=== PATIENT | female | born 1995 | race Caucasian/White ===

== ENCOUNTER → 2016-10-31 | Outpatient (CLI) | payer OTHER ==
--- NOTE | 2016-11-01 01:32 | REP ---
Clinical: Pain . Technique: AP, lateral, bilateral oblique views right third digit . Findings: The osseous structures and joint spaces are intact and normal. There is no evidence for acute fracture or dislocation. Surrounding soft tissues are unremarkable. No subcutaneous emphysema or radiodense foreign body. Impression: Normal examination. No acute fracture or dislocation. Signed by Alessio Mueller MD 11/01/2016 01:24 A
== END | disposition home or self-care (01) ==
LOC: M LRY 13:47
PROVIDERS: ATTEND Family Medicine
DX: M79.644 Pain in right finger(s) (principal)

== ENCOUNTER → 2016-12-13 | Outpatient (CLI) | payer OTHER ==
--- NOTE | 2016-12-13 16:36 | REP ---
OB ULTRASOUND: Real-time sonographic evaluation of the gravid uterus is performed. There is a single living intrauterine gestation. The estimated gestational age is 12 weeks 3 days with EDC 06/24/2017. Today's measurements indicate appropriate growth. Logan-rump length 58 mm 12 weeks 2 days, 38th percentile. BPD 20 mm = 13 weeks 0 days, 68th percentile. HC 71 mm = 12 weeks 6 days, 62nd percentile. AC 54 mm = 12 weeks 2 day, at the 44th percentile. Femur length 7 mm = 12 weeks 2 days, 40th percentile. HC/AC ratio 1.31 within normal limits. Cervix is closed and measures 3 cm in length. heart rate 160 beats per minute. There is no subchronic hemorrhage, suggest followup anatomical screening ultrasound examination at 20 weeks gestational age. Signed by Abisai Ann MD 12/13/2016 04:45 P
== END ==
LOC: M LRY 13:06
PROVIDERS: ATTEND Family Medicine
DX: Z36 Encounter for antenatal screening of mother (principal); Z3A.12 12 weeks gestation of pregnancy

== ENCOUNTER → 2016-12-25 | Outpatient (REF) | payer OTHER | LOC: M SFHCLERA 17:05 | PROVIDERS: ATTEND Nurse Practitioner Family | DX: J06.9 Acute upper respiratory infection, unspecified (principal) ==

== ENCOUNTER → 2016-12-27 | Outpatient (CLI) | payer OTHER ==
[2016-12-27 13:50] LABS: ALBUMIN 3.8 GM/DL (3.2-5.2); ALBUMIN/GLOBULIN RATIO 1.06 (1.00-1.93); ALKALINE PHOSPHATASE 46 U/L (45-117); ALT/SGPT 15 U/L (12-78); AST/SGOT 14 U/L (15-37); BILIRUBIN,DIRECT < 0.1 MG/DL (0.0-0.2); BILIRUBIN,TOTAL 0.3 MG/DL (0.2-1.0); TOTAL PROTEIN 7.4 GM/DL (6.4-8.2)
[2016-12-27 14:27] LABS: BASO % 0.3 % (0.0-1.0); EOS # 0.1 K/mm3 (0.0-0.50); EOS % 1.1 % (0.0-3.0); LARGE UNSTAINED CELL # 0.1 K/mm3 (0.0-0.4); LARGE UNSTAINED CELL % 1.5 % (0.0-4.0); LYMPH # 1.5 K/mm3 (1.5-6.5); LYMPH % 20.5 % (24.0-44.0); MEAN CORPUSCULAR HEMOGLOBIN 23.8 pg (27.0-33.0); MEAN CORPUSCULAR VOLUME 79.4 fl (80.0-96.0); MONO # 0.3 K/mm3 (0.0-0.8); MONO % 4.6 % (0.0-5.0); NEUTROPHILS # 5.3 K/mm3 (1.8-7.7); PLATELET COUNT, AUTOMATED 212 k/mm3 (150-450); RED CELL DISTRIBUTION WIDTH 16.2 % (11.5-14.5); WHITE BLOOD COUNT 7.3 K/mm3 (4.0-10.0)
[2016-12-27 14:52] LABS: CONTROL LINE INT CTR LINE PRESENT; HIV SCRN NEGATIVE (NEGATIVE); HIV SCRN1 NEGATIVE (NEGATIVE)
[2016-12-28 09:43] LABS: HBsAg Prenatal NEGATIVE (NEGATIVE)
== END ==
LOC: M SMT 09:02
PROVIDERS: ATTEND Advanced Practice Midwife
DX: Z34.81 Encounter for supervision of other normal pregnancy, first trimester (principal); Z87.59 Personal history of other complications of pregnancy, childbirth and the puerperium; Z36 Encounter for antenatal screening of mother; Z3A.00 Weeks of gestation of pregnancy not specified

== ENCOUNTER → 2017-01-22 | Outpatient (CLI) | payer OTHER ==
--- NOTE | 2017-01-23 03:03 | REP ---
Clinical: Anatomical evaluation. Comparison: 12/13/2016 . Findings: Examination demonstrates a single live intrauterine in cephalic presentation. motion is identified by technologist. Placenta is noted posterior fundally and grade 0 without evidence for placenta previa or abruption. Amniotic fluid volume is normal. Cervix measures 3.7 cm in length and appears closed. No evidence for nuchal cord. Gestational age by LMP 18 weeks 1 day with KEVIN eight 06/24/2017 . Gestational age by current measurements 18 weeks 2 days with KEVIN 06/23/2017 . FHR equals 147 beats per minute. BPD 4.2 cm 18 weeks 4 days HC 16.0 cm 18 weeks 6 days AC 12.5 cm 18 weeks 1 day FL 2.6 cm 18 weeks 0 days HL 2.7 cm 18 weeks 3 days HC/AC ratio 1.28 Estimated weight 227 grams ( left 48th percentile). Anatomical assessment demonstrates normal structures including cranium, choroid plexus, cavum, cerebellum/posterior fossa, facial features, lungs, four-chamber heart/ventricular outflow tracts, diaphragm, stomach, cord insertion/three-vessel cord, kidneys/bladder, spine, and extremities. Impression: Single live intrauterine in cephalic presentation. Anatomical assessment is complete and normal. No gross abnormalities are identified. Signed by Alessio Mueller MD 01/23/2017 02:54 A
== END ==
LOC: M LRY 11:55
PROVIDERS: ATTEND Obstetrics & Gynecology
DX: Z36 Encounter for antenatal screening of mother (principal)

== ENCOUNTER → 2017-03-18 | Outpatient (CLI) | payer OTHER ==
[2017-03-18 21:01] LABS: ALBUMIN 3.2 GM/DL (3.2-5.2); ALBUMIN/GLOBULIN RATIO 0.82 (1.00-1.93); ALKALINE PHOSPHATASE 78 U/L (45-117); ALT/SGPT 17 U/L (12-78); AST/SGOT 15 U/L (15-37); BILIRUBIN,DIRECT < 0.1 MG/DL (0.0-0.2); BILIRUBIN,TOTAL 0.3 MG/DL (0.2-1.0); TOTAL PROTEIN 7.1 GM/DL (6.4-8.2)
== END ==
LOC: M LRY 16:15
PROVIDERS: ATTEND Advanced Practice Midwife
DX: Z34.82 Encounter for supervision of other normal pregnancy, second trimester (principal); L29.9 Pruritus, unspecified; Z36 Encounter for antenatal screening of mother; Z3A.00 Weeks of gestation of pregnancy not specified

== ENCOUNTER → 2017-03-19 | Outpatient (CLI) | payer OTHER ==
[2017-03-19 17:11] LABS: MEAN CORPUSCULAR HEMOGLOBIN 23.5 pg (27.0-33.0); MEAN CORPUSCULAR HGB CONC 29.9 g/dl (32.0-36.5); MEAN CORPUSCULAR VOLUME 78.8 fl (80.0-96.0); RED CELL DISTRIBUTION WIDTH 17.1 % (11.5-14.5)
[2017-03-20 08:21] LABS: WHITE BLOOD COUNT 9.3 K/mm3 (4.0-10.0)
== END ==
LOC: M LRY 10:44
PROVIDERS: ATTEND Advanced Practice Midwife
DX: Z34.82 Encounter for supervision of other normal pregnancy, second trimester (principal); Z36 Encounter for antenatal screening of mother; Z3A.00 Weeks of gestation of pregnancy not specified

== ENCOUNTER 2017-04-04 08:39 | Outpatient (CLI) | payer OTHER ==
[2017-04-04] MEDS ORDERED: IRON SUCROSE 500 MG in NS 250 ML IV ONE (09:30)
== END 2017-04-04 13:45 | disposition home or self-care (01) ==
LOC: M INFU 08:39
PROVIDERS: ATTEND Advanced Practice Midwife
DX: D64.9 Anemia, unspecified (principal); Z33.1 Pregnant state, incidental; Z88.8 Allergy status to other drugs, medicaments and biological substances; Z91.011 Allergy to milk products; Z79.899 Other long term (current) drug therapy

== ENCOUNTER 2017-04-04 14:00 | Emergency (ER) | payer OTHER ==
[~2017-04-04] VITALS: Ht 152.4 cm; Wt 68.2 kg
[2017-04-04 15:25] VITALS: BP 110/56
== END 2017-04-04 15:27 | disposition home or self-care (01) ==
LOC: M ED 14:00
DX: M79.89 Other specified soft tissue disorders (principal); T45.4X5A Adverse effect of iron and its compounds, initial encounter; X58.XXXA Exposure to other specified factors, initial encounter; Y92.238 Other place in hospital as the place of occurrence of the external cause; O99.513 Diseases of the respiratory system complicating pregnancy, third trimester; J45.909 Unspecified asthma, uncomplicated; O99.343 Other mental disorders complicating pregnancy, third trimester; F41.9 Anxiety disorder, unspecified; Z88.1 Allergy status to other antibiotic agents; Z3A.28 28 weeks gestation of pregnancy

== ENCOUNTER → 2017-04-19 | Outpatient (CLI) | payer OTHER ==
[~2017-04-19] MED LIST: ALBU17IN INH; IRON65TA PO; MACR100C43 PO; PRENTAB9 PO; URSO1TAB6 PO
--- NOTE | 2017-04-19 17:52 | REP ---
OB ULTRASOUND: REASON: Followup. COMPARISON: 01/22/2017. Multiple ultrasonographic images of the gravid uterus show a single living intrauterine gestation in the elvin breech presentation. Doppler interrogation of the heart shows a heart rate of 133 beats per minute. The placenta is posterior and not low lying. The subjective aminotic fluid volume is within normal limits. The cervix measures 2.5 cm in length and it is closed. Evaluation of the maternal adnexal spaces showed no abnormalities. The umbilical cord was seen draped over the neck. BPD 7.3 cm = 29 weeks 2 days HC 27.9 cm = 30 weeks 4 days AC 25.0 cm = 29 weeks 1 day FL 5.7 cm = 29 weeks 5 days Estimated weight is 1402 grams which is at the 19th percentile for a 30 week 4 day gestational age. The calculated amniotic fluid index is 13.9 with an expected range of 8.9-23.6. Doppler interrogation of the umbilical artery shows an AD ratio of 0.62 which is within the normal range. A full anatomic screen was performed on the prior exam. IMPRESSION: Single living intrauterine gestation as described above with an estimated gestational age of 29 weeks 3 days via composite criteria. The delivery date was not calculated for this exam. The reason for which is unknown to me. Signed by Jerel Poon DO 04/29/2017 01:22 P
== END ==
LOC: M LRY 14:37
PROVIDERS: ATTEND Advanced Practice Midwife
DX: O26.613 Liver and biliary tract disorders in pregnancy, third trimester (principal); Z36 Encounter for antenatal screening of mother; Z3A.29 29 weeks gestation of pregnancy; O32.1XX0 Maternal care for breech presentation, not applicable or unspecified

== ENCOUNTER → 2017-04-22 | Outpatient (CLI) | payer OTHER ==
[2017-04-22 18:08] LABS: ALBUMIN 2.9 GM/DL (3.2-5.2); ALBUMIN/GLOBULIN RATIO 0.88 (1.00-1.93); ALKALINE PHOSPHATASE 77 U/L (45-117); ALT/SGPT 12 U/L (12-78); AST/SGOT 12 U/L (15-37); BILIRUBIN,DIRECT < 0.1 MG/DL (0.0-0.2); BILIRUBIN,TOTAL 0.3 MG/DL (0.2-1.0); TOTAL PROTEIN 6.2 GM/DL (6.4-8.2)
[2017-04-22 20:24] LABS: BASO % 0.2 % (0.0-1.0); EOS # 0.1 K/mm3 (0.0-0.50); EOS % 1.2 % (0.0-3.0); LARGE UNSTAINED CELL % 0.6 % (0.0-4.0); LYMPH # 1.2 K/mm3 (1.5-6.5); LYMPH % 17.7 % (24.0-44.0); MEAN CORPUSCULAR HEMOGLOBIN 25.8 pg (27.0-33.0); MEAN CORPUSCULAR HGB CONC 30.2 g/dl (32.0-36.5); MEAN CORPUSCULAR VOLUME 85.4 fl (80.0-96.0); MONO # 0.2 K/mm3 (0.0-0.8); MONO % 3.3 % (0.0-5.0); NEUTROPHILS # 4.9 K/mm3 (1.8-7.7); NEUTROPHILS % 77.1 % (36.0-66.0); PLATELET COUNT, AUTOMATED 195 k/mm3 (150-450); RED CELL DISTRIBUTION WIDTH 22.3 % (11.5-14.5); WHITE BLOOD COUNT 6.4 K/mm3 (4.0-10.0)
[2017-04-22 20:27] LABS: ADD MORPHOLOGY? YES
[2017-04-22 22:28] LABS: ANISOCYTOSIS 3+; HYPOCHROMASIA 1+; POLYCHROMASIA 1+
== END ==
LOC: M LRY 10:20
PROVIDERS: ATTEND Advanced Practice Midwife
DX: O26.613 Liver and biliary tract disorders in pregnancy, third trimester (principal); Z36 Encounter for antenatal screening of mother; Z3A.00 Weeks of gestation of pregnancy not specified

== ENCOUNTER → 2017-05-07 | Outpatient (CLI) | payer OTHER ==
--- NOTE | 2017-05-07 16:32 | REP ---
HISTORY: Inconclusive NFT. Obtain biophysical profile. Multiple ultrasonographic images of the gravid uterus show a single living intrauterine gestation in the cephalic presentation. Doppler interrogation of the heart shows a heart rate of 136 beats per minute. Doppler interrogation of the umbilical artery shows an AB ratio of 2.73. This is within the normal range. The subjective amniotic fluid volume is within normal limits. The calculated amniotic fluid index is 12.7 with an expected range 8.3 to 24.5. The cervix measures 3.2 cm in length and is closed. biophysical profile score is 2 for breathing, 2 for movement, 2 for tone and 2 for amniotic fluid volume giving a sum total of 8 out of 8. IMPRESSION: Limited OB ultrasound as described above. Signed by Jerel Poon DO 05/07/2017 04:36 P
== END ==
LOC: M RAD 15:27
PROVIDERS: ATTEND Advanced Practice Midwife
DX: O26.613 Liver and biliary tract disorders in pregnancy, third trimester (principal)

== ENCOUNTER → 2017-05-09 | Outpatient (CLI) | payer OTHER ==
[2017-05-09 21:00] LABS: ALBUMIN/GLOBULIN RATIO 0.91 (1.00-1.93); ALKALINE PHOSPHATASE 95 U/L (45-117); ALT/SGPT 14 U/L (12-78); AST/SGOT 12 U/L (15-37); BILIRUBIN,DIRECT < 0.1 MG/DL (0.0-0.2); BILIRUBIN,TOTAL 0.3 MG/DL (0.2-1.0); TOTAL PROTEIN 6.3 GM/DL (6.4-8.2)
--- NOTE | 2017-05-10 08:12 | REP ---
Clinical: Growth evaluation. Comparison: 04/19/2017 . Findings: Examination demonstrates a single live intrauterine in cephalic presentation. motion is identified by technologist. Placenta is noted posteriorly and grade II without evidence for placenta previa or abruption. Amniotic fluid volume is normal. Nuchal cord cannot be excluded. Gestational age by LMP 33 weeks 3 days with KEVIN 06/24/2017 . Gestational age by current measurements 32 weeks 4 days with KEVIN 07/02/2017 . FHR equals 131 beats per minute. BPD 8.2 33 weeks 1 day HC 30.3 33 weeks 4 days AC 28.1 32 weeks 1 day FL 6.3 32 weeks 5 days HL 5.9 33-week 6 days HC/AC ratio 1.08 Estimated weight 1998 grams ( 29th percentile). Amniotic fluid index equals 12.9 cm (8.2 - 24.6). Umbilical cord SD ratio equals 2.35 (2.00 - 3.00) Anatomical assessment demonstrates no gross abnormality. Impression: 1. Single live intrauterine in cephalic presentation demonstrating appropriate interval growth. 2. Nuchal cord cannot be excluded. Signed by Alessio Mueller MD 05/10/2017 05:02 A
== END ==
LOC: M LRY 15:27
PROVIDERS: ATTEND Advanced Practice Midwife
DX: O26.613 Liver and biliary tract disorders in pregnancy, third trimester (principal)

== ENCOUNTER 2017-05-15 19:21 | Outpatient (CLI) | payer OTHER ==
[~2017-05-15] VITALS: Ht 152.4 cm; Wt 66.0 kg
[2017-05-15 19:36] VITALS: BP 108/63
[2017-05-15] MEDS ORDERED: PRENTAB9 PO (19:55)
[2017-05-15] MEDS ORDERED: IRON65TA PO (19:55)
[2017-05-15] MEDS ORDERED: URSO1TAB6 PO (19:55)
[2017-05-15] MEDS ORDERED: MACR100C43 PO (20:20)
[2017-05-15] MEDS ORDERED: NITROFURANTOIN (MACROBID) 100 MG CAP PO ONE (20:30)
--- NOTE | 2017-05-15 21:46 | HPE ---
DATE OF ADMISSION: 05/15/2017 CHIEF COMPLAINT: Cramping. History of present illness: Patient is a 21-year-old -0-1-3 at 34 weeks 2 days gestation with an estimated due date of 06/24/2017 from last menstrual period of 09/17/2016. She presents complaining of cramping since yesterday, started around 12:45. Today, she is experiencing waves of contractions, they last about 45 seconds and are every 6-8 minutes since 15:45 today. Now, she states that the contractions have lessened and are starting to stop. Patient states that she has been drinking all day, she denies urinary symptoms, leakage of fluid, bleeding and discharge. Patient says her last intercourse was on Saturday. Patient admits nausea and a headache that she rates 5 out of 10, that starts as an ache and will periodically progress to throbbing and then go back to being just an ache. PAST MEDICAL HISTORY: 1. Pregnancies complicated by cholestasis of . 2. Anemia. 3. Asthma without status asthmatics. 4. Febrile seizures. MEDICATIONS: - iron 325 mg twice a day - Ursodiol 500 mg three times a day - vitamins EXAM: Temperature 98, pulse 96, respiratory rate 18, blood pressure 108/63. ABDOMEN: Gravid. SVE: Closed, thick and high. FHR: Category 1 tracing. LABS: Urine dip showed leukocytes +1, trace proteins, ketones +1. ASSESSMENT AND PLAN: Intrauterine at 34 weeks 2 days gestation with probable urinary tract infection. Urinalysis with culture and sensitivity is ordered. Patient has been placed on Macrobid 100 mg twice a day for 7 days. My preceptor for this patient encounter was Dr. Dilma Crouch. The preceptor was physically present in the building during the encounter and was fully available as needed. All aspects of the patient interview, examination, medical decision making process, and medical care plan development were reviewed and approved by the preceptor. The preceptor is aware and concurs with the plan as stated in the body of this note and will attest to such by his/her co-signature. JOSE
== END 2017-05-15 20:20 | disposition home or self-care (01) ==
LOC: M LDO 19:21
PROVIDERS: ATTEND Obstetrics & Gynecology
DX: O99.89 Other specified diseases and conditions complicating pregnancy, childbirth and the puerperium (principal); Z3A.34 34 weeks gestation of pregnancy; R10.9 Unspecified abdominal pain; O99.013 Anemia complicating pregnancy, third trimester; O99.513 Diseases of the respiratory system complicating pregnancy, third trimester; R56.00 Simple febrile convulsions; O26.613 Liver and biliary tract disorders in pregnancy, third trimester; Z88.1 Allergy status to other antibiotic agents; Z91.040 Latex allergy status

== ENCOUNTER 2017-05-25 03:20 | Outpatient (CLI) | payer OTHER ==
[~2017-05-25] VITALS: Ht 152.4 cm; Wt 65.0 kg
[~2017-05-25 03:20] MED LIST changes: -ALBU17IN INH
[2017-05-25 03:23] VITALS: BP 124/60
[2017-05-25 04:04] LABS: MEAN CORPUSCULAR HEMOGLOBIN 25.9 pg (27.0-33.0); MEAN CORPUSCULAR HGB CONC 31.8 g/dl (32.0-36.5); MEAN CORPUSCULAR VOLUME 81.4 fl (80.0-96.0); RED CELL DISTRIBUTION WIDTH 18.2 % (11.5-14.5); WHITE BLOOD COUNT 8.8 K/mm3 (4.0-10.0)
[2017-05-25] MEDS ORDERED: ONDANSETRON 4MG/2ML VIAL (J2405) IV PRN (04:15)
[2017-05-25] MEDS ORDERED: LR 1,000 ML IV SCH (04:30)
[2017-05-25] MEDS ORDERED: LR 1,000 ML IV ONE (04:30)
[2017-05-25 04:46] LABS: ALBUMIN 2.9 GM/DL (3.2-5.2); ALBUMIN/GLOBULIN RATIO 0.88 (1.00-1.93); ALKALINE PHOSPHATASE 121 U/L (45-117); ALT/SGPT 12 U/L (12-78); ANION GAP 10 MEQ/L (8-16); AST/SGOT 11 U/L (15-37); BILIRUBIN,TOTAL 0.3 MG/DL (0.2-1.0); BLOOD UREA NITROGEN 10 MG/DL (7-18); CALCIUM LEVEL 7.8 MG/DL (8.5-10.1); CARBON DIOXIDE LEVEL 20 MEQ/L (21-32); CHLORIDE LEVEL 111 MEQ/L (98-107); CREATININE FOR GFR 0.53 MG/DL (0.55-1.02); GLOMERULAR FILTRATION RATE > 60.0 (>60); GLUCOSE, FASTING 85 MG/DL (70-105); POTASSIUM SERUM 3.9 MEQ/L (3.5-5.1); SODIUM LEVEL 141 MEQ/L (136-145); TOTAL PROTEIN 6.2 GM/DL (6.4-8.2)
[2017-05-25 05:23] VITALS: BP 105/65
[2017-05-25] MEDS ORDERED: PROMETHAZINE INJ 25 MG/ML VIAL (J2550) IV ONE (05:45)
[2017-05-25] MEDS ORDERED: KETOROLAC 30 MG/ML VIAL (J1885) IV ONE (05:45)
== END 2017-05-25 13:07 | disposition home or self-care (01) ==
LOC: M LDO 03:20
PROVIDERS: ATTEND Specialist
DX: O99.89 Other specified diseases and conditions complicating pregnancy, childbirth and the puerperium (principal); B34.9 Viral infection, unspecified; Z3A.35 35 weeks gestation of pregnancy
CPT/HCPCS: 80053; 83690; 85027; 96374; 96375; J1885; J2405

== ENCOUNTER 2017-05-26 11:36 | Inpatient (IN) | payer OTHER ==
[2017-05-26] VITALS (7 sets, daily range): BP systolic 108–122; BP diastolic 56–72
[~2017-05-26] VITALS: Ht 152.4 cm; Wt 66.0 kg
[2017-05-26 20:12] LABS: MEAN CORPUSCULAR HEMOGLOBIN 26.6 pg (27.0-33.0); MEAN CORPUSCULAR HGB CONC 32.5 g/dl (32.0-36.5); MEAN CORPUSCULAR VOLUME 81.9 fl (80.0-96.0); WHITE BLOOD COUNT 11.7 K/mm3 (4.0-10.0)
[2017-05-26] MEDS: URSODIOL 300 MG CAP PO SCH (20:30)
[2017-05-26] MEDS: BETAMETHASONE SOLUSPAN 6MG/ML INJ 5ML (J0702) IM SCH (20:31)
[2017-05-26] MEDS ORDERED: PENICILLIN G POTASSIUM IV 5 MU in D5W MINI-BAG PLUS 100 ML IV STA (21:35)
[2017-05-27] MEDS: PENICILLIN G POTASSIUM IV 2.5 MU in D5W 100 ML IV SCH ×3 (02:06→10:01)
[2017-05-27 02:10] VITALS: BP 109/66
[2017-05-27 05:09] VITALS: BP 104/56
[2017-05-27] MEDS: BETAMETHASONE SOLUSPAN 6MG/ML INJ 5ML (J0702) IM SCH (08:45)
[2017-05-27] MEDS: URSODIOL 300 MG CAP PO SCH (08:45)
[2017-05-27 08:50] VITALS: BP 104/60
[2017-05-27 10:05] VITALS: BP 115/72
--- NOTE | 2017-05-27 13:21 | HPE ---
DATE OF ADMISSION: 05/26/2017 HISTORY: A 21-year-old G5, P-3-0-1-3 female at 35-6/7 weeks gestation by last menstrual period (LMP) consistent with 12 week ultrasound, estimated date of confinement (EDC) of 06/24/2017, presents with abdominal pain and contractions for several hours. She had been observed the evening before for nausea and vomiting and those symptoms have resolved. No bloody show. There is good movement. COURSE: Patient appreciated care on 12/27/2016 at 14 weeks gestation. Her blood pressure at that time was 120/66, weighed 136 pounds. She was diagnosed with cholestasis of at 30 weeks gestation based on a bile acid level of 13.3 and started on ursodiol. She had significant anemia with hemoglobin of 8.3 at 26 weeks and was started on oral iron therapy for this. OBSTETRICAL HISTORY: 1. November 2012: 40 week vaginal delivery of 6 pound 15 ounce female . 2. Miscarriage. 3. October 2014: 40 week vaginal delivery of 8 pound 9 ounce male infant. 4. September 2016: 40 week vaginal delivery of 6 pound 14 ounce male infant. complicated by cholestasis. was hospitalized with group B Streptococcus (GBS) sepsis. MEDICAL HISTORY: Anxiety. SURGERIES: Eye surgery. ALLERGIES: 1. ROCEPHIN 2. LACTOSE SOCIAL HISTORY: Patient is . Patient denies cigarettes, alcohol or drug use. FAMILY HISTORY: Noncontributory. PHYSICAL EXAMINATION: Blood pressure 124/84, pulse 84. She appears mildly uncomfortable. HEAD AND NECK EXAMINATION: Normal. LUNGS: Clear. HEART: Regular rate and rhythm. ABDOMEN: Nontender. Gravid. heart tones category 1. Contractions at a rate of 2 out of 7 minutes. CERVIX: 3-4 cm, 80% effaced. -2 station. Moderate consistency, mid position. Vertex. EXTREMITIES: Nontender. LABORATORY DATA: Blood type A positive, Rubella immune, RPR nonreactive, hepatitis B and C negative, HIV negative. Diabetes screen of 99. ASSESSMENT: A 21-year-old G5, P3 female at 35-6/7 weeks gestation, cholestasis of presents with contractions, possible labor. Patient is going to be admitted on 05/26/2017. Will plan betamethasone times two dosed for lung maturity. If patient makes further cervical change, would start antibiotics for group B Streptococcus (GBS) prophylaxis given the history of prior GBS infection in her last . Do not plan to augment labor at this time.
== END 2017-05-27 11:25 | disposition home or self-care (01) | DRG 563 ==
LOC: M LDO 11:36 → M LDI 19:40
PROVIDERS: ADMIT Specialist; ATTEND Specialist
DX: O60.03 Preterm labor without delivery, third trimester (principal); Z3A.35 35 weeks gestation of pregnancy; O26.613 Liver and biliary tract disorders in pregnancy, third trimester; K83.1 Obstruction of bile duct; O99.013 Anemia complicating pregnancy, third trimester; D64.9 Anemia, unspecified

== ENCOUNTER → 2017-05-28 | Outpatient (REF) | payer OTHER ==
[~2017-05-28] MED LIST changes: +ALBU17IN INH
== END ==
LOC: M LAB REF 17:08
PROVIDERS: ATTEND Obstetrics & Gynecology
DX: Z34.83 Encounter for supervision of other normal pregnancy, third trimester (principal); Z36 Encounter for antenatal screening of mother; Z3A.00 Weeks of gestation of pregnancy not specified

== ENCOUNTER 2017-06-03 09:14 | Inpatient (IN) | payer OTHER ==
[2017-06-03] VITALS (18 sets, daily range): BP systolic 99–122; BP diastolic 55–78
[~2017-06-03] VITALS: Ht 152.4 cm; Wt 72.0 kg
[~2017-06-03 09:14] MED LIST changes: -ALBU17IN INH
[2017-06-03] MEDS ORDERED: LR 1,000 ML IV SCH (10:00)
[2017-06-03] MEDS ORDERED: OXYTOCIN DRIP 30 UNITS in APPROPRIATE DILUENT 1 EA IV SCH (10:00)
[2017-06-03] MEDS ORDERED: ALBU17IN INH (10:02)
[2017-06-03] MEDS ORDERED: PENICILLIN G POTASSIUM IV 5 MU in D5W MINI-BAG PLUS 100 ML IV STA (10:07)
[2017-06-03 11:00] LABS: MEAN CORPUSCULAR HEMOGLOBIN 25.6 pg (27.0-33.0); MEAN CORPUSCULAR HGB CONC 31.2 g/dl (32.0-36.5); MEAN CORPUSCULAR VOLUME 82.2 fl (80.0-96.0); RED CELL DISTRIBUTION WIDTH 17.8 % (11.5-14.5); WHITE BLOOD COUNT 8.1 K/mm3 (4.0-10.0)
--- NOTE | 2017-06-03 12:43 | HPE ---
DATE OF ADMISSION: 06/03/2017 21-year-old, (G) 5, para (P) 3-0-1-3 female at 37 and 0/7 weeks gestation by last menstrual period (LMP) consistent with 12 week ultrasound and expected date of confinement (EDC) of 06/24/2017 who presents for labor induction. The indication for induction is cholestasis of . She has had contractions and denies vaginal bleeding. COURSE: The patient initiated care at 14 weeks gestation on 12/27/2016. Her blood pressure was 120/66 and weight 136 pounds. At 30 weeks gestation, the patient was diagnosed with cholestasis of based on a bile acid of 13.3. She had itching that was intense and she was started on Ursodiol three times a day for treatment. She had anemia during the and was treated with oral iron. She was admitted at 35 weeks with a viral syndrome with nausea, vomiting and diarrhea. She was admitted the following day for contractions. Subsequently, her labor stopped at 4 cm. She did receive steroids at that time. The date of steroids is 05/27/2017. OBSTETRICAL HISTORY: 1. In 2012, 40 week vaginal delivery, 6 pound 15 ounce female . 2. In October 2014, 40 week vaginal delivery, 8 pound 8 ounce male infant. 3. In June 2016, 40 week vaginal delivery, 6 pound 14 ounce male infant. The was complicated by cholestasis as well as oligohydramnios. The infant was hospitalized with Group B Strep sepsis. MEDICAL HISTORY: 1. Anxiety. No current medications. 2. Asthma. 3. Arthritis. 4. Hiatal hernia. 5. Anemia. SURGICAL HISTORY: Eye surgery. SOCIAL HISTORY: The patient denies cigarettes, alcohol or drug use. FAMILY HISTORY: Noncontributory. PHYSICAL EXAMINATION: Blood pressure 120/74. Pulse 84. She is in no apparent distress. Head and Neck Exam: Normal. Lungs: Clear. Heart: Regular rate and rhythm. Abdomen: Nontender. Gravid. heart tones Category 1. Sterile Vaginal Exam: 4 cm, 70% effaced, -2 station, vertex, posterior, soft. Extremities: Nontender. LABS: Blood type A positive. Rubella immune. RPR nonreactive. Hepatitis B and C negative. HIV negative. Diabetes screen 99. ASSESSMENT: 21-year-old, 5, para 3-0-1-3 female, at 37 and 0/7 weeks gestation with cholestasis of . The patient is admitted for labor induction due to cholestasis. PLAN: The patient is admitted on 06/03/2017. She will receive penicillin GBS prophylaxis due to history of prior Group B Strep sepsis in her prior . The risks of induction were discussed.
[2017-06-03] MEDS ORDERED: PENICILLIN G POTASSIUM IV 2.5 MU in D5W 100 ML IV SCH (15:00)
[2017-06-03] MEDS ORDERED: OXYTOCIN DRIP 30 UNITS in APPROPRIATE DILUENT 1 EA IV ONE (17:45)
[2017-06-03] MEDS ORDERED: DOCUSATE SODIUM 100 MG CAP PO PRN (17:45)
[2017-06-03] MEDS ORDERED: ONDANSETRON 4MG/2ML VIAL (J2405) IV PRN (17:45)
[2017-06-03] MEDS ORDERED: DIBUCAINE 1% OINTMENT 30GM TOP PRN (17:45)
[2017-06-03] MEDS ORDERED: MEASLES,MUMPS,RUBELLA VACCINE INJ (MMR-II) (90707) SC SCH (17:45)
[2017-06-03] MEDS ORDERED: METHYLERGONOVINE MALEATE 0.2 MG TAB PO PRN (17:45)
[2017-06-03] MEDS ORDERED: RHOGAM 300 MCG (1500 IU) INJ (J2790) IM SCH (17:45)
--- NOTE | 2017-06-03 17:45 | DN ---
DATE: 06/03/2017 PREDELIVERY DIAGNOSIS: 37 week cholestasis of . POSTDELIVERY DIAGNOSIS: Delivered. PROCEDURE: Spontaneous vaginal delivery. BEVERAGE MANAGER: Dr. Xander Castaneda ANESTHESIA: None. ESTIMATED BLOOD LOSS: 300 mL. FINDINGS: A 6 pound, 4 ounce male infant, scores of 9 and 9. DELIVERY SUMMARY: After a short second stage consisting only of one or two pushes, the patient had spontaneous delivery of a 6 pound, 4 ounce male , scores 9 and 9 with no delivery anesthesia. Loose nuchal cord times one was reduced. The shoulders delivered with ease. The cried spontaneously and was handed to the mother. The cord was doubly clamped and cut. The placenta delivered spontaneously and appeared to be intact. The patient received IV pitocin immediately after delivery of the placenta. There were no vaginal lacerations present. Sponge counts were correct.
[2017-06-03] MEDS: ACETAMINOPHEN 500 MG TAB PO PRN (18:02)
[2017-06-04] MEDS: IBUPROFEN 800 MG TAB PO PRN ×3 (03:19→18:40)
[2017-06-04] MEDS: PRENATAL VITAMINS CHEWABLE TABLET PO SCH (08:33)
[2017-06-04] MEDS: ACETAMINOPHEN 500 MG TAB PO PRN ×2 (08:34→14:34)
[2017-06-04] MEDS ORDERED: PERCOCET 5MG/325MG TAB PO PRN (18:00)
[2017-06-04 18:07] VITALS: BP 117/64
[2017-06-04 20:00] VITALS: BP 117/64
[2017-06-05] MEDS: IBUPROFEN 800 MG TAB PO PRN (06:00)
[2017-06-05 06:27] VITALS: BP 108/64
[2017-06-05] MEDS: PRENATAL VITAMINS CHEWABLE TABLET PO SCH (08:50)
[2017-06-05] MEDS ORDERED: IBUPROFEN 800 MG TAB PO PRN (17:45)
== END 2017-06-05 16:42 | disposition home or self-care (01) | DRG 560 ==
LOC: M LDI 09:14 → M OBS 20:30
PROVIDERS: ADMIT Specialist; ATTEND Specialist
PROC: 10E0XZZ Delivery of Products of Conception, External Approach (ICD-10-PCS; principal; 2017-06-03)
PROC: 3E033VJ Introduction of Other Hormone into Peripheral Vein, Percutaneous Approach (ICD-10-PCS; 2017-06-03)
DX: O26.62 Liver and biliary tract disorders in childbirth (principal); K83.1 Obstruction of bile duct; O99.02 Anemia complicating childbirth; D64.9 Anemia, unspecified; Z3A.37 37 weeks gestation of pregnancy; O69.81X0 Labor and delivery complicated by cord around neck, without compression, not applicable or unspecified; Z37.0 Single live birth

== ENCOUNTER 2017-07-04 12:37 | Day surgery (SDC) | payer OTHER ==
[~2017-07-04] VITALS: Ht 152.4 cm; Wt 66.7 kg
[~2017-07-04 12:37] MED LIST changes: +ALBU17IN INH
[2017-07-04] MEDS ORDERED: LR 1,000 ML IV ONE (12:45)
[2017-07-04] MEDS ORDERED: dexameTHASONE 4 MG/ML 1ML VIAL (J1100) IV ONE (12:45)
[2017-07-04 14:11] LABS: CONTROL LINE UCG INT CTR LINE PRESENT
[2017-07-04] MEDS ORDERED: MIDAZOLAM INJ 2 MG/2 ML VIAL (J2250) As Ordered ONE (14:41)
[2017-07-04] MEDS ORDERED: fentaNYL 100 MCG/2 ML INJECTION (J3010) As Ordered ONE (14:41)
[2017-07-04] MEDS ORDERED: dexameTHASONE 4 MG/ML 1ML VIAL (J1100) As Ordered ONE (15:19)
[2017-07-04] MEDS ORDERED: PROPOFOL 200 MG/20 ML VIAL As Ordered ONE (15:19)
[2017-07-04] MEDS ORDERED: LIDOCAINE 2% INJ 100 MG/5 ML SDV (FOR ANES.) As Ordered ONE (15:19)
[2017-07-04] MEDS ORDERED: ONDANSETRON 4MG/2ML VIAL (J2405) As Ordered ONE (15:19)
[2017-07-04] MEDS ORDERED: PERCOCET 5MG/325MG TAB As Ordered ONE (15:50)
[2017-07-04] MEDS ORDERED: fentaNYL 100 MCG/2 ML INJECTION (J3010) IV PRN (16:15)
[2017-07-04] MEDS ORDERED: HYDROmorphone HCL 1 MG/ML SYRINGE (J1170) IV PRN (16:15)
[2017-07-04] MEDS ORDERED: PERCOCET 5MG/325MG TAB PO PRN (16:15)
[2017-07-04 17:20] VITALS: BP 122/84
--- NOTE | 2017-07-31 10:18 | RO ---
DATE OF PROCEDURE: 07/04/2017 PREPROCEDURE DIAGNOSIS: Chronic tonsillitis. POSTPROCEDURE DIAGNOSIS: Chronic tonsillitis. PROCEDURE PERFORMED: Tonsillectomy. SURGEON: Sylvester Smith MD LOAN PROCESSING SUPERVISOR: ANESTHESIA: General. CLINICAL PREAMBLE: This 22-year-old woman presented to the office with a history of chronic tonsillitis. Physical examination revealed cryptic tonsils. Management options, including tonsillectomy have been discussed. The patient understood and consented to the procedure. DESCRIPTION OF PROCEDURE: Patient was identified in preoperative holding and brought to the operating room in stable condition. In supine position on the operating table, patient received general anesthesia followed by orotracheal intubation without incident. Patient was prepped and draped in the usual fashion for the procedure. The Paul-Cristi mouth gag was inserted and suspended. The right tonsil was medialized using curved Allis forceps. Mucosal incision was made over the superior pole of the right tonsil using the Coblator wand set at 7 for Coblation. The tonsillar capsule was identified, and dissection was carried out along this plane to excise the right tonsil. The left tonsil was then similarly dissected out. At the end of the procedure, both tonsil beds were free of bleeding. Estimated blood loss was less than 10 mL. No complication was encountered. Sponge and instruments counts were correct at the end of the procedure. General anesthesia was reversed, and patient was extubated and brought to the recovery room in stable condition.
== END 2017-07-04 17:35 | disposition home or self-care (01) ==
LOC: M SDC 12:37
PROVIDERS: ATTEND Otolaryngology
DX: J35.01 Chronic tonsillitis (principal); K44.9 Diaphragmatic hernia without obstruction or gangrene; D64.9 Anemia, unspecified; M12.9 Arthropathy, unspecified; F41.9 Anxiety disorder, unspecified; G43.909 Migraine, unspecified, not intractable, without status migrainosus; J45.909 Unspecified asthma, uncomplicated; E73.9 Lactose intolerance, unspecified; Z88.1 Allergy status to other antibiotic agents; Z91.018 Allergy to other foods; Z91.040 Latex allergy status; Z86.69 Personal history of other diseases of the nervous system and sense organs

== ENCOUNTER → 2017-07-22 | Outpatient (REF) | payer OTHER | LOC: M SFHCLERA 10:46 | PROVIDERS: ATTEND Family Medicine | DX: A08.4 Viral intestinal infection, unspecified (principal) ==

== ENCOUNTER 2017-10-02 17:36 | Emergency (ER) | payer OTHER ==
[2017-10-02] MEDS: ONDANSETRON 4MG/2ML VIAL (J2405) IV (18:39)
[2017-10-02] MEDS: KETOROLAC 30 MG/ML VIAL (J1885) IV (18:40)
[2017-10-02] MEDS: NS 1,000 ML IV (18:40)
[2017-10-02] MEDS: PANTOPRAZOLE 40MG TAB (PROTONIX) PO (18:40)
[2017-10-02 18:51] LABS: BASO % 0.5 % (0.0-1.0); EOS # 0.1 10^3/uL (0.0-0.50); EOS % 1.6 % (0.0-3.0); IMMATURE GRANULOCYTE % 0.2 % (0-0); LYMPH # 1.9 10^3/uL (1.5-6.5); LYMPH % 32.7 % (24.0-44.0); MEAN CORPUSCULAR HEMOGLOBIN 24.9 pg (27.0-33.0); MEAN CORPUSCULAR HGB CONC 31.1 g/dl (32.0-36.5); MEAN CORPUSCULAR VOLUME 80.1 fl (80.0-96.0); MONO # 0.3 10^3/uL (0.0-0.8); MONO % 4.9 % (0.0-5.0); NEUTROPHILS # 3.4 10^3/uL (1.8-7.7); NEUTROPHILS % 60.1 % (36.0-66.0); PLATELET COUNT, AUTOMATED 215 10^3/uL (150-450); RED CELL DISTRIBUTION WIDTH 15.3 % (11.5-14.5); WHITE BLOOD COUNT 5.7 10^3/uL (4.0-10.0)
[2017-10-02 19:17] LABS: ALBUMIN 4.1 GM/DL (3.2-5.2); ALBUMIN/GLOBULIN RATIO 1.11 (1.00-1.93); ALKALINE PHOSPHATASE 63 U/L (45-117); ALT/SGPT 15 U/L (12-78); AMYLASE 36 U/L (25-115); ANION GAP 6 MEQ/L (8-16); AST/SGOT 14 U/L (7-37); BILIRUBIN,DIRECT < 0.1 MG/DL (0.0-0.2); BILIRUBIN,TOTAL 0.3 MG/DL (0.2-1.0); BLOOD UREA NITROGEN 12 MG/DL (7-18); CALCIUM LEVEL 8.9 MG/DL (8.5-10.1); CARBON DIOXIDE LEVEL 28 MEQ/L (21-32); CHLORIDE LEVEL 104 MEQ/L (98-107); CREATININE FOR GFR 0.62 MG/DL (0.55-1.02); GLOMERULAR FILTRATION RATE > 60.0 (>60); GLUCOSE, FASTING 75 MG/DL (70-105); POTASSIUM SERUM 3.8 MEQ/L (3.5-5.1); SODIUM LEVEL 138 MEQ/L (136-145); TOTAL PROTEIN 7.8 GM/DL (6.4-8.2)
[2017-10-02] MEDS: MAGNESIUM CITRATE 300 ML BTL PO (19:45)
== END 2017-10-02 20:06 | disposition home or self-care (01) ==
LOC: M ED 17:36
DX: K59.00 Constipation, unspecified (principal); J45.909 Unspecified asthma, uncomplicated; E73.9 Lactose intolerance, unspecified; Z91.040 Latex allergy status; Z88.1 Allergy status to other antibiotic agents; Z91.018 Allergy to other foods; Z82.49 Family history of ischemic heart disease and other diseases of the circulatory system
CPT/HCPCS: J2405

== ENCOUNTER → 2017-10-02 | Outpatient (CLI) | payer OTHER ==
--- NOTE | 2017-10-02 16:07 | REP ---
Clinical: Right upper quadrant and epigastric pain. Technique: Two supine views of the abdomen and pelvis. Findings: Moderate to marked fecal stasis and presumed constipation noted. No evidence for bowel obstruction or perforation. No organomegaly. No abnormal calcifications. Skeletal structures are intact. Impression: Moderate to marked fecal stasis and possible constipation with fecal impaction. Signed by Alessio Mueller MD 10/02/2017 03:59 P
== END ==
LOC: M LRY 15:41
PROVIDERS: ATTEND Nurse Practitioner Family
DX: R10.9 Unspecified abdominal pain (principal)

== ENCOUNTER → 2017-10-02 | Outpatient (CLI) | payer OTHER ==
--- NOTE | 2017-10-02 17:03 | REP ---
However quadrant sonography: History: History of colon stasis. Swelling right upper quadrant. Right upper quadrant pain. Comparison study: December 10, 2015. Findings: Scanning through right upper quadrant of the abdomen demonstrates a normal sized thin-walled gallbladder without evidence of stone or polyp. Common bile duct is normal measuring 0.5 cm in greatest diameter. No focal liver lesion is seen. Left lobe visualization however is somewhat limited due to bowel gas. There is no evidence of ascites. Cortical thinning is seen in the right kidney. The right renal dimensions are 9.9 x 4.8 x 4.5 cm. Impression: Some thinning of the cortex of the right kidney seen. No other abnormality noted.. Signed by Fredi Burger MD 10/02/2017 04:54 P
== END ==
LOC: M LRY 15:55
PROVIDERS: ATTEND Nurse Practitioner Family
DX: R10.9 Unspecified abdominal pain (principal); R93.49 Abnormal radiologic findings on diagnostic imaging of other urinary organs

== ENCOUNTER → 2017-11-21 | Outpatient (CLI) | payer OTHER | LOC: M LRY 17:07 | DX: M79.604 Pain in right leg (principal) | CPT/HCPCS: 73590 ==

== ENCOUNTER → 2017-11-28 | Outpatient (REF) | payer OTHER ==
[2017-11-28 20:36] LABS: HEMATOCRIT 34.7 % (36.0-47.0); HEMOGLOBIN 10.6 g/dl (12.0-16.0); MEAN CORPUSCULAR HEMOGLOBIN 25.4 pg (27.0-33.0); MEAN CORPUSCULAR HGB CONC 30.5 g/dl (32.0-36.5); MEAN CORPUSCULAR VOLUME 83.2 fl (80.0-96.0); PLATELET COUNT, AUTOMATED 271 10^3/uL (150-450); RED BLOOD COUNT 4.17 10^6/uL (4.00-5.40); RED CELL DISTRIBUTION WIDTH 15.2 % (11.5-14.5); WHITE BLOOD COUNT 6.7 10^3/uL (4.0-10.0)
[2017-11-28 20:52] LABS: ALBUMIN 4.3 GM/DL (3.2-5.2); ALBUMIN/GLOBULIN RATIO 1.34 (1.00-1.93); ALKALINE PHOSPHATASE 56 U/L (45-117); ALT/SGPT 15 U/L (12-78); ANION GAP 5 MEQ/L (8-16); AST/SGOT 9 U/L (7-37); BILIRUBIN,TOTAL 0.2 MG/DL (0.2-1.0); BLOOD UREA NITROGEN 9 MG/DL (7-18); C REACTIVE PROTEIN QUANTITATIV < 0.30 MG/DL (0.00-0.30); CALCIUM LEVEL 8.9 MG/DL (8.5-10.1); CARBON DIOXIDE LEVEL 30 MEQ/L (21-32); CHLORIDE LEVEL 104 MEQ/L (98-107); CREATININE FOR GFR 0.61 MG/DL (0.55-1.30); GLOMERULAR FILTRATION RATE > 60.0 (>60); GLUCOSE, FASTING 85 MG/DL (70-100); POTASSIUM SERUM 4.2 MEQ/L (3.5-5.1); RHEUMATOID FACTOR QUANT < 10.0 IU/ML (0-15.0); SODIUM LEVEL 139 MEQ/L (136-145); TOTAL PROTEIN 7.5 GM/DL (6.4-8.2)
[2017-11-28 20:54] LABS: ERYTHROCYTE SEDIMENTATION RATE 5 mm/hr (0-20)
[2017-11-30 14:10] LABS: ANTINUCLEAR ANTIBODIES DIRECT Negative (Negative)
== END ==
LOC: M SFHCLERA 17:23
DX: M25.541 Pain in joints of right hand (principal)
CPT/HCPCS: 85652

== ENCOUNTER → 2018-09-18 | Outpatient (CLI) | payer OTHER ==
[2018-09-18 18:02] LABS: BASO % 0.3 % (0.0-1.0); EOS # 0.1 10^3/uL (0.0-0.50); EOS % 1.1 % (0.0-3.0); HEMATOCRIT 33.3 % (36.0-47.0); HEMOGLOBIN 10.2 g/dl (12.0-15.5); IMMATURE GRANULOCYTE % 0.1 % (0-3.0); LYMPH # 1.5 10^3/uL (1.5-6.5); LYMPH % 19.7 % (24.0-44.0); MEAN CORPUSCULAR HEMOGLOBIN 25.1 pg (27.0-33.0); MEAN CORPUSCULAR HGB CONC 30.6 g/dl (32.0-36.5); MEAN CORPUSCULAR VOLUME 81.8 fl (80.0-96.0); MONO # 0.3 10^3/uL (0.0-0.8); MONO % 4.1 % (0.0-5.0); NEUTROPHILS # 5.6 10^3/uL (1.8-7.7); NEUTROPHILS % 74.7 % (36.0-66.0); PLATELET COUNT, AUTOMATED 224 10^3/uL (150-450); RED BLOOD COUNT 4.07 10^6/uL (4.00-5.40); RED CELL DISTRIBUTION WIDTH 16.4 % (11.5-14.5); WHITE BLOOD COUNT 7.5 10^3/uL (4.0-10.0)
[2018-09-18 18:03] LABS: ALBUMIN 3.7 GM/DL (3.2-5.2); ALBUMIN/GLOBULIN RATIO 1.16 (1.00-1.93); ALKALINE PHOSPHATASE 40 U/L (45-117); ALT/SGPT 14 U/L (12-78); ANION GAP 9 MEQ/L (8-16); AST/SGOT 11 U/L (7-37); BILIRUBIN,TOTAL 0.3 MG/DL (0.2-1.0); BLOOD UREA NITROGEN 10 MG/DL (7-18); CALCIUM LEVEL 8.4 MG/DL (8.5-10.1); CARBON DIOXIDE LEVEL 24 MEQ/L (21-32); CHLORIDE LEVEL 105 MEQ/L (98-107); CREATININE FOR GFR 0.52 MG/DL (0.55-1.30); GLOMERULAR FILTRATION RATE > 60.0 (>60); GLUCOSE, FASTING 70 MG/DL (70-100); POTASSIUM SERUM 4.3 MEQ/L (3.5-5.1); SODIUM LEVEL 138 MEQ/L (136-145); TOTAL PROTEIN 6.9 GM/DL (6.4-8.2)
[2018-09-18 20:53] LABS: CHLAMYDIA DNA AMPLIFICATION NEGATIVE (NEGATIVE); GC DNA AMPLIFICATION NEGATIVE (NEGATIVE)
[2018-09-19 11:30] LABS: RUBELLA IgG QUALITATIVE IMMUNE (IMMUNE)
[2018-09-19 11:31] LABS: HBsAg Prenatal NEGATIVE (NEGATIVE)
[2018-09-19 11:59] LABS: HEPATITIS C VIRUS ABY INDEX 0.1 INDEX (<0.8); HIV 1&2 SCREEN CENTAUR NEGATIVE (NEGATIVE)
[2018-09-22 14:12] LABS: BILE ACIDS FRACTIONATED 5.3 umol/L (4.7-24.5)
== END ==
LOC: M SMT 10:49
DX: O26.611 Liver and biliary tract disorders in pregnancy, first trimester (principal)
CPT/HCPCS: 80053

== ENCOUNTER → 2018-10-28 | Outpatient (CLI) | payer OTHER ==
[2018-10-28 18:49] LABS: ALT/SGPT 15 U/L (12-78); BILIRUBIN,DIRECT < 0.1 MG/DL (0.0-0.2); BILIRUBIN,TOTAL 0.2 MG/DL (0.2-1.0); TOTAL PROTEIN 6.5 GM/DL (6.4-8.2)
== END ==
LOC: M LAB 17:47
PROVIDERS: ATTEND Advanced Practice Midwife
DX: L29.9 Pruritus, unspecified (principal)

== ENCOUNTER → 2018-11-06 | Outpatient (CLI) | payer OTHER ==
--- NOTE | 2018-11-06 08:24 | REP ---
Clinical: with Abnormal liver function tests. Technique: Real time grubbs scale ultrasound examination using curved array transducer. Findings: The gallbladder demonstrates small amount of layering sludge without obvious gallstones, wall thickening, or pericholecystic fluid. No biliary ductal dilatation is appreciated and the common bile duct measures 3.8 mm diameter. Liver and visualized pancreas are normal in contour, size, echogenicity without focal hepatic or pancreatic lesions identified. The right kidney demonstrates prominent echogenic pyramids suggesting medullary sponge kidney/nephrocalcinosis but is otherwise normal in reniform shape and size without hydronephrosis. Right kidney measures 10.8 x 5.0 x 4.8 cm. Visualized abdominal aorta normal. No ascites. Early live identified. BJR=126 bpm Impression: 1. Small amount of layering sludge in the gallbladder. 2. Findings to suggest nephrocalcinosis/medullary sponge kidney. 3. Live identified in cephalic presentation with anterior placenta noted. Electronically Signed by Alessio Mueller MD 11/06/2018 08:14 A
== END ==
LOC: M RAD 06:42
PROVIDERS: ATTEND Advanced Practice Midwife
DX: O26.612 Liver and biliary tract disorders in pregnancy, second trimester (principal)

== ENCOUNTER → 2018-11-19 | Outpatient (CLI) | payer OTHER ==
--- NOTE | 2018-11-19 19:53 | REP ---
OB ULTRASOUND: Real-time sonographic evaluation of the gravid uterus is performed. There is a single living intrauterine gestation. The estimated gestational age is 19 weeks 4 days, EDC 04/11/2019. Today's measurements indicate appropriate growth. BPD 44 mm = 19 weeks 2 days, 41st percentile HC 162 mm = 19 weeks 0 days, 31st percentile. AC 141 mm = 19 weeks 3 days, 47th percentile. Femur length 29 mm = 18 weeks 6 days, at the 32nd percentile. HC/AC ratio 1.15 within normal range. Estimated weight 278 grams, 32nd percentile. heart rate 133 beats per minute. SEEN/GROSSLY UNREMARKABLE Lateral ventricles Tiny cystic areas are seen in the choroid plexus. Posterior fossa Yes Upper lip Yes Four-chamber heart No LVOT No RVOT No Stomach Yes Cord insertion Yes Three vessel cord Yes Kidneys Yes Bladder Yes Spine Yes position: Vertex. Placenta: Anterior and grade 0 with no previa or abruption. Amniotic fluid: Within normal limits. Cervix is closed and measures 4.7 cm in length. Electronically Signed by Abisai Ann MD 11/20/2018 09:12 A
== END ==
LOC: M RAD 16:48
PROVIDERS: ATTEND Advanced Practice Midwife
DX: Z3A.18 18 weeks gestation of pregnancy (principal)

== ENCOUNTER → 2018-12-10 | Outpatient (CLI) | payer OTHER ==
[2018-12-10 20:15] LABS: BILIRUBIN,DIRECT 0.1 MG/DL (0.0-0.2); BILIRUBIN,TOTAL 0.3 MG/DL (0.2-1.0); TOTAL PROTEIN 6.5 GM/DL (6.4-8.2)
== END ==
LOC: M LAB 18:29
PROVIDERS: ATTEND Advanced Practice Midwife
DX: O99.89 Other specified diseases and conditions complicating pregnancy, childbirth and the puerperium (principal)

== ENCOUNTER → 2018-12-17 | Outpatient (CLI) | payer OTHER ==
--- NOTE | 2018-12-17 18:27 | REP ---
Clinical: Anatomical evaluation. Comparison: 11/19/2018 . Findings: Examination demonstrates a single live intrauterine in cephalic presentation. motion is identified by technologist. Placenta is noted anterior and grade air grade zero without evidence for placenta previa or abruption. Amniotic fluid volume is normal. Cervix measures 4.4 cm in length and appears closed. No evidence for nuchal cord. Gestational age by LMP 23 weeks 4 days with KEVIN [birth year]1990 . Gestational age by current measurements 823 weeks 1 day with KEVIN 04/14/2019 . FHR equals 131 beats per minute. Estimated weight 590 grams ( 38th percentile). Anatomical assessment demonstrates normal structures including cranium, choroid plexus, cavum, cerebellum/posterior fossa, facial features, lungs, four-chamber heart/ventricular outflow tracts, diaphragm, stomach, cord insertion/three-vessel cord, kidneys/bladder, spine, and extremities. Impression: Single live intrauterine in cephalic presentation demonstrating appropriate oval growth. Anatomical assessment is complete and normal. Electronically Signed by Alessio Mueller MD 12/17/2018 06:19 P
== END ==
LOC: M RAD 17:15
PROVIDERS: ATTEND Advanced Practice Midwife
DX: O99.712 Diseases of the skin and subcutaneous tissue complicating pregnancy, second trimester (principal); Z3A.23 23 weeks gestation of pregnancy

== ENCOUNTER → 2019-01-13 | Outpatient (CLI) | payer OTHER ==
[~2019-01-13] MED LIST changes: -URSO1TAB6 PO; +URSO500T7 PO
[2019-01-13 17:21] LABS: HEMATOCRIT 27.5 % (36.0-47.0); HEMOGLOBIN 7.9 g/dl (12.0-15.5); MEAN CORPUSCULAR HEMOGLOBIN 23.6 pg (27.0-33.0); MEAN CORPUSCULAR HGB CONC 28.7 g/dl (32.0-36.5); MEAN CORPUSCULAR VOLUME 82.1 fl (80.0-96.0); PLATELET COUNT, AUTOMATED 133 10^3/uL (150-450); RED BLOOD COUNT 3.35 10^6/uL (4.00-5.40); WHITE BLOOD COUNT 8.3 10^3/uL (4.0-10.0)
== END ==
LOC: M LRY 11:32
PROVIDERS: ATTEND Obstetrics & Gynecology
DX: Z34.82 Encounter for supervision of other normal pregnancy, second trimester (principal); Z36.89 Encounter for other specified antenatal screening

== ENCOUNTER → 2019-02-09 | Outpatient (CLI) | payer OTHER ==
[2019-02-09 10:54] LABS: HEMATOCRIT 27.3 % (36.0-47.0); HEMOGLOBIN 7.8 g/dl (12.0-15.5); MEAN CORPUSCULAR HEMOGLOBIN 22.7 pg (27.0-33.0); MEAN CORPUSCULAR HGB CONC 28.6 g/dl (32.0-36.5); MEAN CORPUSCULAR VOLUME 79.4 fl (80.0-96.0); PLATELET COUNT, AUTOMATED 176 10^3/uL (150-450); RED BLOOD COUNT 3.44 10^6/uL (4.00-5.40); WHITE BLOOD COUNT 6.3 10^3/uL (4.0-10.0)
== END ==
LOC: M SMT 08:45
PROVIDERS: ATTEND Obstetrics & Gynecology
DX: O26.613 Liver and biliary tract disorders in pregnancy, third trimester (principal); Z3A.00 Weeks of gestation of pregnancy not specified

== ENCOUNTER → 2019-02-12 | Outpatient (CLI) | payer OTHER ==
--- NOTE | 2019-02-13 05:23 | REP ---
Clinical: Anatomical evaluation. Comparison: 12/17/2018 . Findings: Examination demonstrates a single live intrauterine in cephalic presentation. motion is identified by technologist. Placenta is noted anterior and grade grade 1 without evidence for placenta previa or abruption. Amniotic fluid volume is normal. Cervix measures 4.6 cm in length and appears closed. No evidence for nuchal cord. Gestational age by LMP 31 weeks 5 days with KEVIN 04/11/2019 . Gestational age by current measurements 31 weeks 4 days with KEVIN 04/12/2019 . FHR equals 144 beats per minute. BPD 8.0 cm 32 weeks 1 day HC 29.6 cm 32 weeks 5 days AC 27.8 cm 31 weeks 6 days FL 5.8 cm 30 weeks 4 days HL 5.2 cm 830 weeks 3 days HC/AC ratio 1.06 Estimated weight 1789 grams ( 40th percentile). Amniotic fluid index: 13.8 cm (8.7 - 24.1) Umbilical cord SD ratio: 2.20 (2.50 - 3.50). Impression: Single live intrauterine in cephalic presentation demonstrating appropriate interval growth. Umbilical cord SD ratio minimally below normal. Electronically Signed by Alessio Mueller MD 02/13/2019 05:14 A
== END ==
LOC: M RAD 14:50
PROVIDERS: ATTEND Obstetrics & Gynecology
DX: O26.613 Liver and biliary tract disorders in pregnancy, third trimester (principal); Z3A.31 31 weeks gestation of pregnancy

== ENCOUNTER → 2019-03-12 | Outpatient (CLI) | payer OTHER ==
--- NOTE | 2019-03-13 03:03 | REP ---
Clinical: Anatomical evaluation. Comparison: 02/12/2019 . Findings: Examination demonstrates a single live intrauterine in cephalic presentation. motion is identified by technologist. Placenta is noted anterior and grade two without evidence for placenta previa or abruption. Amniotic fluid volume is normal. Cervix measures 2.7 cm in length and appears closed. Nuchal cord cannot be excluded. Gestational age by LMP 35 weeks 5 days with KEVIN 04/11/2019 . Gestational age by current measurements 34 weeks 5 days with KEVIN 04/18/2019 . FHR equals 143 beats per minute. BPD 8.7 cm 35 weeks 0 days HC 31.3 cm 35 weeks 1 day AC 30.8 cm 34 weeks 5 days FL 6.6 cm 34 weeks 1 day HL 6.0 cm 34 weeks 5 days HC/AC ratio 1.02 Estimated weight 2476 grams ( 31st percentile). Amniotic fluid index: 17.2 cm Umbilical cord SD ratio: 2.91 Impression: 1. Single live intrauterine in cephalic presentation demonstrating appropriate interval growth. 2. Nuchal cord cannot be excluded. Electronically Signed by Alessio Mueller MD 03/13/2019 02:55 A
== END ==
LOC: M RAD 17:21
PROVIDERS: ATTEND Advanced Practice Midwife
DX: O26.613 Liver and biliary tract disorders in pregnancy, third trimester (principal)

== ENCOUNTER → 2019-03-17 | Outpatient (REF) | payer OTHER ==
[~2019-03-17] MED LIST changes: +FIOR1CAP PO; +URSO300C3 PO
== END ==
LOC: M LAB REF 13:10
PROVIDERS: ATTEND Advanced Practice Midwife
DX: O99.013 Anemia complicating pregnancy, third trimester (principal)

== ENCOUNTER 2019-03-30 06:06 | Inpatient (IN) | payer OTHER ==
[~2019-03-30] VITALS: Ht 152.4 cm; Wt 69.0 kg
[2019-03-30] VITALS (29 sets, daily range): BP systolic 103–139; BP diastolic 58–93
[2019-03-30] MEDS ORDERED: URSO300C3 PO (06:31)
[2019-03-30] MEDS ORDERED: FERR325T18 PO (06:31)
[2019-03-30] MEDS ORDERED: LACTATED RINGER'S 1000 ML IV STA (08:32)
[2019-03-30] MEDS ORDERED: PENICILLIN G POTASSIUM IV 5 MU in D5W MINI-BAG PLUS 100 ML IV STA (08:32)
[2019-03-30] MEDS ORDERED: OXYTOCIN 30 UNITS IN 0.9% NaCl 500ML IV BAG (J2590) As Ordered ONE (08:36)
[2019-03-30] MEDS: LR 1,000 ML IV SCH ×2 (08:52→19:59)
[2019-03-30 08:56] LABS: HEMATOCRIT 22.4 % (36.0-47.0); MEAN CORPUSCULAR HEMOGLOBIN 21.5 pg (27.0-33.0); MEAN CORPUSCULAR HGB CONC 28.1 g/dl (32.0-36.5); MEAN CORPUSCULAR VOLUME 76.5 fl (80.0-96.0); PLATELET COUNT, AUTOMATED 168 10^3/uL (150-450); RED BLOOD COUNT 2.93 10^6/uL (4.00-5.40); WHITE BLOOD COUNT 7.6 10^3/uL (4.0-10.0)
[2019-03-30 09:00] LABS: HEMOGLOBIN 6.3 g/dl (12.0-15.5)
[2019-03-30] MEDS ORDERED: OXYTOCIN DRIP 30 UNITS in APPROPRIATE DILUENT 1 EA IV SCH (09:00)
[2019-03-30 09:44] LABS: ALBUMIN 2.6 GM/DL (3.2-5.2); ALT/SGPT 11 U/L (12-78); BILIRUBIN,TOTAL 0.3 MG/DL (0.2-1.0); BLOOD UREA NITROGEN 5 MG/DL (7-18); CARBON DIOXIDE LEVEL 24 MEQ/L (21-32); CHLORIDE LEVEL 108 MEQ/L (98-107); CREATININE FOR GFR 0.42 MG/DL (0.55-1.30); GLOMERULAR FILTRATION RATE > 60.0 (>60); GLUCOSE, FASTING 72 MG/DL (70-100); POTASSIUM SERUM 3.8 MEQ/L (3.5-5.1); SODIUM LEVEL 138 MEQ/L (136-145); TOTAL PROTEIN 5.6 GM/DL (6.4-8.2)
[2019-03-30] MEDS: PENICILLIN G POTASSIUM IV 2.5 MU in APPROPRIATE DILUENT 1 EA IV SCH ×3 (12:59→19:59)
[2019-03-30 14:22] LABS: HEMATOCRIT 28.8 % (36.0-47.0); HEMOGLOBIN 8.8 g/dl (12.0-15.5); MEAN CORPUSCULAR HEMOGLOBIN 23.7 pg (27.0-33.0); MEAN CORPUSCULAR HGB CONC 30.6 g/dl (32.0-36.5); MEAN CORPUSCULAR VOLUME 77.6 fl (80.0-96.0); PLATELET COUNT, AUTOMATED 160 10^3/uL (150-450); RED BLOOD COUNT 3.71 10^6/uL (4.00-5.40); WHITE BLOOD COUNT 9.9 10^3/uL (4.0-10.0)
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
[2019-03-30] MEDS ORDERED: PROMETHAZINE INJ 25 MG/ML VIAL (J2550) IV ONE (21:30)
[2019-03-30] MEDS ORDERED: BUTORPHANOL 2 MG/ML INJ (J0595) IV ONE (21:30)
--- NOTE | 2019-03-30 22:21 | IPNPDOC ---
Obstetrical Progress Note Date of Service Mar 30, 2019 Subjective Late entry 1430: Patient reports she is occasionally feeling contractions. Objective Vital Signs Date Time Temp Pulse Resp B/P (MAP) Pulse Ox O2 Delivery O2 Flow Rate FiO2 03/30/19 21:44 16 03/30/19 20:56 96 126/84 (98) 03/30/19 18:25 99.4 Vital Signs Label Value Date Time Patient Temperature 97.7 degrees F 03/30/19 1339 Temperature Source Temporal 03/30/19 1339 Pulse 88 03/30/19 1339 Blood Pressure Assessment 125/74 (91) 03/30/19 1339 Source Automatic Cuff (NIBP) Respiratory Rate 16 bpm 03/30/19 1339 Item Value Date Time Hemoglobin 8.8 g/dl L # 03/30/19 1408 Hematocrit 28.8 % L 03/30/19 1408 Platelet Count 160 10^3/uL 03/30/19 1408 Assessment Heart Rate (FHR): 120 Variability: Moderate Accelerations: Positive Decelerations: None Heart Rate Tracing: Category I Tocometer Contractions: Yes Frequency: irregular Assessment and Plan Status: Reassuring Group B Streptococcus: Positive Anticipate: Vaginal Delivery Additional Comments Nurse instructed to restart IV Pitocin now that she H/H is stable. KOTA HERRERA CNM Mar 30, 2019 22:21
--- NOTE | 2019-03-30 23:23 | IPNPDOC ---
Obstetrical Progress Note Date of Service Mar 30, 2019 Subjective Patient reports she is coping well with the Stadol and phenergan. Objective Vital Signs Date Time Temp Pulse Resp B/P (MAP) Pulse Ox O2 Delivery O2 Flow Rate FiO2 03/30/19 21:44 16 03/30/19 20:56 96 126/84 (98) 03/30/19 18:25 99.4 Assessment Heart Rate (FHR): 120 Variability: Moderate Accelerations: Positive Decelerations: None Heart Rate Tracing: Category I Tocometer Contractions: Yes Frequency: other (1-4 minutes) Sterile Vaginal Examination Dilation: 5 cm (5-6 cm) Effacement (%): 80% Station: -2 Cervical Position: Middle Postion/Presentation: Cephalic presentation Assessment and Plan EGA at Admission: 37.0 Status: Reassuring Group B Streptococcus: Positive Anticipate: Vaginal Delivery Additional Comments IV Pitocin at AROM to a small amount of clear fluid. KOTA HERRERA CNM Mar 30, 2019 23:23
[2019-03-31] VITALS (7 sets, daily range): BP systolic 102–121; BP diastolic 60–80
[2019-03-31] MEDS ORDERED: OXYTOCIN DRIP 30 UNITS in APPROPRIATE DILUENT 1 EA IV SCH (00:19)
[2019-03-31] MEDS ORDERED: MEASLES,MUMPS,RUBELLA VACCINE INJ (MMR-II) (90707) SC SCH (00:30)
[2019-03-31] MEDS ORDERED: ACETAMINOPHEN TAB 650MG DOSE (2X325MG) PO PRN (00:30)
[2019-03-31] MEDS ORDERED: METHYLERGONOVINE MALEATE 0.2 MG TAB PO PRN (00:30)
[2019-03-31] MEDS ORDERED: DOCUSATE SODIUM 100 MG CAP PO PRN (00:30)
[2019-03-31] MEDS ORDERED: ANUSOL HC CREAM 30GM TOP PRN (00:30)
[2019-03-31] MEDS ORDERED: DIBUCAINE 1% OINTMENT 30GM TOP PRN (00:30)
[2019-03-31] MEDS ORDERED: IBUPROFEN 600 MG TAB PO PRN (00:30)
[2019-03-31] MEDS ORDERED: RHOGAM 300 MCG (1500 IU) INJ (J2790) IM SCH (00:30)
[2019-03-31] MEDS ORDERED: ACETAMINOPHEN 500 MG TAB PO PRN (00:30)
[2019-03-31] MEDS: PRENATAL VITAMINS CHEWABLE TABLET PO SCH (08:36)
[2019-03-31] MEDS: FERROUS SULFATE 325MG TAB PO SCH ×2 (08:36→20:34)
[2019-03-31] MEDS: IBUPROFEN 800 MG TAB PO PRN ×2 (12:03→20:34)
--- NOTE | 2019-03-31 13:26 | DN ---
DELIVERY SUMMARY DELIVERY DATE AND TIME: 03/31/2019 at 0005 STATUS: Delivered. Induction of labor with spontaneous vaginal delivery. PROVIDER: Gianna Chahal CNM, RONNA ANESTHESIA: None. FINDINGS: Male, 6 pounds 12 ounces, 3060 grams. scores 9/9, cholestasis, severe anemia needing two units of packed red blood cells prior to start of induction. The patient is a 22-year-old female who is now a 6, para 5 0-1-5 at 37 weeks and 1 day gestation. She arrived to labor and delivery yesterday at 37 weeks gestation for an induction of labor due to cholestasis. She received two units of packed red blood cells prior to induction due to a hemoglobin and hematocrit of 6.8 and 22. Patient received multiple doses of antibiotics due to history of having a child with Group B streptococcus (GBS) sepsis. Patient received IV Pitocin for induction of labor. She did not receive an epidural. She received 1 mg of Stadol and 12.5 mg of Phenergan for pain management. The patient progressed to fully dilated at 2358 and pushed to a living male in the left occiput anterior (LIOR) position with restitution to right occiput transverse (ROT) at 0005. The baby was placed on the maternal abdomen, active and crying. Prior to being placed on the maternal abdomen baby's anterior shoulder delivered with ease and the corpus immediately followed. The cord was clamped times two and cut by the father of the baby after one minute. The placenta delivered spontaneously and intact at 0009. Uterine hemostasis was achieved via rapid infusion of IV Pitocin and fundal massage. The vagina, cervix, and perineum were inspected and found to be intact. Mom plans on formula feeding her . Total estimated blood loss was 400 mL. They plan on naming him Feidhlim. Both mom and baby are in stable condition. All counts of instruments and sponges are correct.
[2019-04-01 04:59] VITALS: BP 111/72
[2019-04-01] MEDS: PRENATAL VITAMINS CHEWABLE TABLET PO SCH (08:06)
[2019-04-01] MEDS: FERROUS SULFATE 325MG TAB PO SCH (08:06)
[2019-04-01] MEDS: IBUPROFEN 800 MG TAB PO PRN (15:45)
== END 2019-04-01 16:35 | disposition home or self-care (01) | DRG 560 ==
LOC: M LDI 06:06 → M OBS 03-31 02:10
PROVIDERS: ADMIT Obstetrics & Gynecology; ATTEND Obstetrics & Gynecology
PROC: 30233N1 Transfusion of Nonautologous Red Blood Cells into Peripheral Vein, Percutaneous Approach (ICD-10-PCS; 2019-03-30)
PROC: 10E0XZZ Delivery of Products of Conception, External Approach (ICD-10-PCS; principal; 2019-03-31)
DX: O99.02 Anemia complicating childbirth (principal); K83.1 Obstruction of bile duct; Z37.0 Single live birth; Z3A.37 37 weeks gestation of pregnancy; D64.9 Anemia, unspecified; O99.820 Streptococcus B carrier state complicating pregnancy

== ENCOUNTER → 2019-08-21 | Outpatient (CLI) | payer OTHER ==
[~2019-08-21] MED LIST changes: +FERR325T18 PO; +URSO1TAB8 PO; -URSO500T7 PO
--- NOTE | 2019-08-21 15:22 | REP ---
REASON FOR EXAM: Acute ankle pain, no trauma. No priors. FINDINGS: No acute fracture or destructive osseous lesion. The mortise is intact. Electronically Signed by Jerel Poon DO 08/21/2019 03:29 P
== END ==
LOC: M LRY 12:36
PROVIDERS: ATTEND Family Medicine
DX: M25.571 Pain in right ankle and joints of right foot (principal)

== ENCOUNTER → 2019-12-31 | Outpatient (REF) | payer OTHER ==
[2019-12-31 13:32] LABS: ALBUMIN 4.4 GM/DL (3.2-5.2); ALT/SGPT 18 U/L (12-78); BILIRUBIN,TOTAL 0.3 MG/DL (0.2-1.0); BLOOD UREA NITROGEN 10 MG/DL (7-18); CARBON DIOXIDE LEVEL 28 MEQ/L (21-32); CHLORIDE LEVEL 104 MEQ/L (98-107); CREATININE FOR GFR 0.68 MG/DL (0.55-1.30); GLOMERULAR FILTRATION RATE > 60.0 (>60); GLUCOSE, FASTING 83 MG/DL (70-100); POTASSIUM SERUM 3.5 MEQ/L (3.5-5.1); RHEUMATOID FACTOR QUANT < 10.0 IU/ML (<15.0); SODIUM LEVEL 139 MEQ/L (136-145); THYROXINE (T4) 8.9 UG/DL (4.5-12.0); TOTAL PROTEIN 7.8 GM/DL (6.4-8.2); TOTAL T3 119.2 NG/DL (60.0-181.0)
[2020-01-01 09:02] LABS: THYROID PEROXIDASE ANTIBODY 36.9 U/ML (<60.0)
== END ==
LOC: M LABDRAW1 10:53
PROVIDERS: ATTEND Nurse Practitioner Family
DX: L50.1 Idiopathic urticaria (principal); Z91.018 Allergy to other foods; T78.1XXD Other adverse food reactions, not elsewhere classified, subsequent encounter

== ENCOUNTER → 2020-03-28 | Outpatient (REF) | payer OTHER ==
[~2020-03-28] MED LIST changes: +HYDR-643 PO; +WELLTAB38 PO
[2020-03-28 15:58] LABS: BASO % 0.6 % (0.0-1.0); EOS # 0.3 10^3/uL (0.0-0.5); EOS % 4.9 % (0.0-3.0); HEMATOCRIT 34.2 % (36.0-47.0); HEMOGLOBIN 10.2 g/dl (12.0-15.5); LYMPH # 2.3 10^3/uL (1.5-5.0); LYMPH % 45.6 % (24.0-44.0); MEAN CORPUSCULAR HEMOGLOBIN 25.5 pg (27.0-33.0); MEAN CORPUSCULAR HGB CONC 29.8 g/dl (32.0-36.5); MEAN CORPUSCULAR VOLUME 85.5 fl (80.0-96.0); MONO # 0.3 10^3/uL (0.0-0.8); MONO % 6.5 % (0.0-5.0); NEUTROPHILS # 2.1 10^3/uL (1.5-8.5); NEUTROPHILS % 42.2 % (36.0-66.0); PLATELET COUNT, AUTOMATED 203 10^3/uL (150-450); WHITE BLOOD COUNT 5.1 10^3/uL (4.0-10.0)
[2020-03-28 16:13] LABS: PERCENT SATURATION 4.2 % (13.2-45.0)
== END ==
LOC: M SFHCLERA 12:14
PROVIDERS: ATTEND Family Medicine
DX: D64.9 Anemia, unspecified (principal)

== ENCOUNTER → 2020-06-30 | Outpatient (CLI) | payer OTHER ==
[~2020-06-30] MED LIST changes: -HYDR-643 PO; -WELLTAB38 PO
[2020-06-30 09:27] LABS: HEMATOCRIT 34.5 % (36.0-47.0); HEMOGLOBIN 10.4 g/dl (12.0-15.5); MEAN CORPUSCULAR HEMOGLOBIN 25.7 pg (27.0-33.0); MEAN CORPUSCULAR HGB CONC 30.1 g/dl (32.0-36.5); MEAN CORPUSCULAR VOLUME 85.2 fl (80.0-96.0); PLATELET COUNT, AUTOMATED 179 10^3/uL (150-450); RED BLOOD COUNT 4.05 10^6/uL (4.00-5.40); WHITE BLOOD COUNT 3.9 10^3/uL (4.0-10.0)
[2020-06-30 10:29] LABS: ALBUMIN 3.8 GM/DL (3.2-5.2); ALT/SGPT 17 U/L (12-78); BILIRUBIN,TOTAL 0.3 MG/DL (0.2-1.0); BLOOD UREA NITROGEN 11 MG/DL (7-18); CALCIUM LEVEL 8.7 MG/DL (8.5-10.1); CARBON DIOXIDE LEVEL 30 MEQ/L (21-32); CHLORIDE LEVEL 107 MEQ/L (98-107); CREATININE FOR GFR 0.59 MG/DL (0.55-1.30); FREE T4 0.94 NG/DL (0.76-1.46); GLOMERULAR FILTRATION RATE > 60.0 (>60); GLUCOSE, FASTING 91 MG/DL (70-100); SODIUM LEVEL 138 MEQ/L (136-145); TOTAL PROTEIN 6.9 GM/DL (6.4-8.2)
--- NOTE | 2020-06-30 15:47 | ECHO ---
DATE OF PROCEDURE: 06/30/2020 Age: 25 Gender: Female Height: 60 inches Weight: 146 pounds Body surface area: 1.63 m2 OUTPATIENT REFERRING PHYSICIAN: Marion Balderas MD. INDICATION: Family history of congenital malformation. MEASUREMENTS: 2D Measurements: RV 2.6 cm LV 4.0 cm Septum 0.8 cm Posterior wall 0.8 cm Aortic Root 2.9 cm LA 3.4 cm LVEF 75% Doppler Measurements: AV 1.22 m/s LVOT 1.14 m/s LVOT diameter 1.8 cm MV-E 102, A 43, E/A ratio 2.4 Early mitral deceleration time 209 m/s E prime medial 11.9, A prime medial 8, E prime lateral 17.6 PV 0.8 m/s Pulmonary artery acceleration time 127 m/s RVSP 24 mmHg IVC 1.3 cm COMMENTS: Normal sinus rhythm without intraventricular conduction disturbance. M-mode and two-dimensional echocardiography was performed with pulsed, continuous wave, color flow, and tissue Doppler studies. Normal left ventricular size, wall thickness, and hyperkinetic wall motion. Normal left atrial size and Doppler assessment of left ventricular (LV) diastolic function and estimated mean left atrial pressure. Normal right heart chamber sizes and motion with normal estimated pulmonary arterial pressure. Normal inferior vena cava (IVC) size and collapse against an elevated central venous pressure. Normal aortic dimensions. Normal appearing and functioning valvular structures. No apparent intracardiac mass or pericardial effusion. No apparent congenital heart disease is evident. MTDD
== END ==
LOC: M CARPUL 08:15
PROVIDERS: ATTEND Family Medicine
DX: D64.9 Anemia, unspecified (principal); D41.9 Neoplasm of uncertain behavior of unspecified urinary organ; Z82.79 Family history of other congenital malformations, deformations and chromosomal abnormalities

== ENCOUNTER → 2020-08-26 | Outpatient (REF) | payer OTHER | LOC: M SFHCLERA 10:42 | PROVIDERS: ATTEND Nurse Practitioner Family | DX: R20.9 Unspecified disturbances of skin sensation (principal) ==

== ENCOUNTER → 2020-08-26 | Outpatient (CLI) | payer OTHER ==
[2020-08-27 17:06] LABS: HERPES ZOSTER, VARICELLA IgG 224 index (Immune >165); HERPES ZOSTER, VARICELLA IgM <0.91 index (0.00-0.90)
== END ==
LOC: M LAB 11:25
PROVIDERS: ATTEND Nurse Practitioner Family
DX: R20.9 Unspecified disturbances of skin sensation (principal)

== ENCOUNTER → 2020-10-21 | Outpatient (CLI) | payer OTHER ==
[~2020-10-21] MED LIST changes: +HYDR-643 PO; +WELLTAB38 PO
[2020-10-21 18:05] LABS: BASO % 0.6 % (0.0-1.0); EOS # 0.2 10^3/uL (0.0-0.5); EOS % 3.5 % (0.0-3.0); HEMATOCRIT 35.6 % (36.0-47.0); HEMOGLOBIN 10.6 g/dl (12.0-15.5); LYMPH # 1.9 10^3/uL (1.5-5.0); LYMPH % 28.8 % (24.0-44.0); MEAN CORPUSCULAR HEMOGLOBIN 25.6 pg (27.0-33.0); MEAN CORPUSCULAR HGB CONC 29.8 g/dl (32.0-36.5); MONO # 0.4 10^3/uL (0.0-0.8); MONO % 6.3 % (0.0-5.0); NEUTROPHILS # 3.9 10^3/uL (1.5-8.5); NEUTROPHILS % 60.6 % (36.0-66.0); PLATELET COUNT, AUTOMATED 221 10^3/uL (150-450); RED BLOOD COUNT 4.14 10^6/uL (4.00-5.40); WHITE BLOOD COUNT 6.5 10^3/uL (4.0-10.0)
[2020-10-21 18:25] LABS: ALBUMIN 4.1 GM/DL (3.2-5.2); ALT/SGPT 17 U/L (12-78); BILIRUBIN,TOTAL 0.3 MG/DL (0.2-1.0); BLOOD UREA NITROGEN 9 MG/DL (7-18); CALCIUM LEVEL 8.6 MG/DL (8.5-10.1); CARBON DIOXIDE LEVEL 29 MEQ/L (21-32); CHLORIDE LEVEL 103 MEQ/L (98-107); CREATININE FOR GFR 0.66 MG/DL (0.55-1.30); FERRITIN < 3 NG/ML (8-252); FREE T4 0.85 NG/DL (0.76-1.46); GLOMERULAR FILTRATION RATE > 60.0 (>60); GLUCOSE, FASTING 83 MG/DL (70-100); IRON (FE) 15 UG/DL (50-170); PERCENT SATURATION 3.5 % (13.2-45.0); POTASSIUM SERUM 3.4 MEQ/L (3.5-5.1); SODIUM LEVEL 139 MEQ/L (136-145); TOTAL IRON BINDING CAPACITY 429 UG/DL (250-450); TOTAL PROTEIN 7.4 GM/DL (6.4-8.2)
[2020-10-21 18:27] LABS: TOTAL 25(OH) VITAMIN D 11.8 NG/ML (30.0-100.0); VITAMIN B12 LEVEL 789 PG/ML
[2020-10-21 18:28] LABS: FOLATE 9.1 NG/ML
== END ==
LOC: M PLALAB 14:49
PROVIDERS: ATTEND Physician Assistant
DX: D50.9 Iron deficiency anemia, unspecified (principal)

== ENCOUNTER 2020-11-02 12:33 | Outpatient (CLI) | payer OTHER ==
[~2020-11-02] VITALS: Ht 149.9 cm; Wt 65.4 kg
[~2020-11-02 12:33] MED LIST changes: -HYDR-643 PO; -WELLTAB38 PO
[2020-11-02 12:45] VITALS: BP 123/75
[2020-11-02] MEDS ORDERED: FERRIC CARBOXYMALTOSE INJ 750 MG, VIAL MATE ADAPTER 1 EACH in NS 250 ML IV ONE (13:30)
[2020-11-02 14:01] VITALS: BP 106/61
[2020-11-02] MEDS ORDERED: HYDR-643 PO (14:05)
[2020-11-02] MEDS ORDERED: WELLTAB38 PO (14:05)
[2020-11-02 15:00] VITALS: BP 103/72
[2020-11-02 16:14] VITALS: BP 104/60
[2020-11-02 16:45] VITALS: BP 111/69
== END 2020-11-02 16:45 | disposition home or self-care (01) ==
LOC: M INFU 12:33
PROVIDERS: ATTEND Physician Assistant
DX: D50.9 Iron deficiency anemia, unspecified (principal); Z88.8 Allergy status to other drugs, medicaments and biological substances; Z91.040 Latex allergy status
CPT/HCPCS: 96365; 96366; J1439

== ENCOUNTER 2020-11-09 13:37 | Outpatient (CLI) | payer OTHER ==
[~2020-11-09] VITALS: Ht 146.7 cm; Wt 65.5 kg
[~2020-11-09 13:37] MED LIST changes: +FERRIC CARBOXYMALTOSE INJ 750 MG, VIAL MATE ADAPTER 1 EACH in NS 250 ML IV ONE; +HYDR-643 PO; +WELLTAB38 PO
[2020-11-09 14:12] VITALS: BP 118/71
[2020-11-09 15:35] VITALS: BP 99/54
== END 2020-11-09 15:35 | disposition home or self-care (01) ==
LOC: M INFU 13:37
PROVIDERS: ATTEND Physician Assistant
DX: D50.9 Iron deficiency anemia, unspecified (principal); Z88.8 Allergy status to other drugs, medicaments and biological substances; Z91.040 Latex allergy status
CPT/HCPCS: 96365; J1439

== ENCOUNTER → 2020-12-30 | Outpatient (CLI) | payer OTHER ==
[~2020-12-30] MED LIST changes: -FERRIC CARBOXYMALTOSE INJ 750 MG, VIAL MATE ADAPTER 1 EACH in NS 250 ML IV ONE
--- NOTE | 2020-12-30 16:48 | REP ---
INDICATION: IRON DEFICIENCY ANEMIA, UNSPECIFIED. COMPARISON: None. TECHNIQUE: Transabdominal and transvaginal scanning performed. FINDINGS: Uterine dimensions are 9.0 x 4.3 x 5.6 cm. Endometrial echo is 3 mm in AP dimension and centrally placed. The bladder measures 8.8 x 7.8 x 9.9cm. The right ovary has dimensions of 3.3 x 1.8 x 3.2 cm. It's Doppler flow is normal with a resistive index of 0.59. The left ovary dimensions are 3.7 x 2.2 x 3.4 cm. It's Doppler flow is normal with a resistive index of 0.67. A simple benign cyst of the right ovary may represent a dominant follicle 2.3 x 1.8 x 2.2 cm. A simple benign cyst of the left ovary measures 2.8 x 1.4 x 2.8 cm. There is trace free fluid in the cul-de-sac. IMPRESSION: Small benign cystic structure in each ovary with no other abnormality. <Electronically signed by Abisai Ann > 12/30/20 [id number]
[2020-12-30 16:52] LABS: BASO % 0.6 % (0.0-1.0); EOS # 0.2 10^3/uL (0.0-0.5); EOS % 3.6 % (0.0-3.0); HEMATOCRIT 37.2 % (36.0-47.0); HEMOGLOBIN 12.2 g/dl (12.0-15.5); LYMPH # 1.4 10^3/uL (1.5-5.0); LYMPH % 28.9 % (24.0-44.0); MEAN CORPUSCULAR HEMOGLOBIN 30.2 pg (27.0-33.0); MEAN CORPUSCULAR HGB CONC 32.8 g/dl (32.0-36.5); MEAN CORPUSCULAR VOLUME 92.1 fl (80.0-96.0); MONO # 0.3 10^3/uL (0.0-0.8); MONO % 6.2 % (2.0-8.0); NEUTROPHILS % 60.3 % (36.0-66.0); PLATELET COUNT, AUTOMATED 137 10^3/uL (150-450); RED BLOOD COUNT 4.04 10^6/uL (4.00-5.40)
[2020-12-30 17:20] LABS: ALBUMIN 4.3 GM/DL (3.2-5.2); ALT/SGPT 16 U/L (12-78); BILIRUBIN,TOTAL 0.3 MG/DL (0.2-1.0); BLOOD UREA NITROGEN 8 MG/DL (7-18); CALCIUM LEVEL 9.2 MG/DL (8.5-10.1); CARBON DIOXIDE LEVEL 31 MEQ/L (21-32); CHLORIDE LEVEL 105 MEQ/L (98-107); CREATININE FOR GFR 0.63 MG/DL (0.55-1.30); FERRITIN 166 NG/ML (8-252); GLOMERULAR FILTRATION RATE > 60.0 (>60); GLUCOSE, FASTING 81 MG/DL (70-100); IRON (FE) 62 UG/DL (50-170); PERCENT SATURATION 31.3 % (13.2-45.0); POTASSIUM SERUM 3.8 MEQ/L (3.5-5.1); SODIUM LEVEL 139 MEQ/L (136-145); TOTAL IRON BINDING CAPACITY 198 UG/DL (250-450); TOTAL PROTEIN 6.8 GM/DL (6.4-8.2)
[2020-12-30 17:26] LABS: TOTAL 25(OH) VITAMIN D 92.6 NG/ML (30.0-100.0)
== END ==
LOC: M LAB 15:14
PROVIDERS: ATTEND Physician Assistant
DX: D50.9 Iron deficiency anemia, unspecified (principal); N92.6 Irregular menstruation, unspecified

== ENCOUNTER → 2021-04-13 | Outpatient (CLI) | payer OTHER ==
--- NOTE | 2021-04-13 14:39 | REP ---
INDICATION: RT KNEE PAIN. COMPARISON: None. TECHNIQUE: Sagittal spin-echo proton density, T2 STIR and T2 FLASH. Coronal spin-echo proton density and fat suppressed proton density. Axial fat suppressed proton density. FINDINGS: The anterior and posterior horns of the lateral meniscus are within normal limits. The anterior and posterior horns of the medial meniscus are within normal limits. The anterior and posterior cruciate ligaments are intact. The quadriceps and patellar tendons are intact. The medial and lateral collateral ligaments are intact. The medial and lateral patellar retinacula are intact. There is blistering and fissuring of the patellar articular cartilage. There is thinning and irregularity of the medial compartmental articular cartilages particularly affecting the medial femoral condyle anteriorly. There is no joint effusion or Yusuf's cyst. The marrow signal is within normal limits. IMPRESSION: 1. Chondromalacia as described above. 2. There is no evidence of acute internal derangement. <Electronically signed by Jerel Poon > 04/13/21 [id number]
== END ==
LOC: M PLAIMG 13:26
PROVIDERS: ATTEND Orthopaedic Surgery
DX: M94.261 Chondromalacia, right knee (principal)

== ENCOUNTER → 2021-06-28 | Outpatient (CLI) | payer OTHER ==
[2021-06-28 17:07] LABS: BASO % 0.3 % (0.0-1.0); EOS # 0.4 10^3/uL (0.0-0.5); EOS % 6.4 % (0.0-3.0); HEMATOCRIT 39.8 % (36.0-47.0); HEMOGLOBIN 13.4 g/dl (12.0-15.5); LYMPH # 1.3 10^3/uL (1.5-5.0); LYMPH % 19.4 % (24.0-44.0); MEAN CORPUSCULAR HEMOGLOBIN 32.2 pg (27.0-33.0); MEAN CORPUSCULAR HGB CONC 33.7 g/dl (32.0-36.5); MEAN CORPUSCULAR VOLUME 95.7 fl (80.0-96.0); MONO # 0.6 10^3/uL (0.0-0.8); NEUTROPHILS # 4.4 10^3/uL (1.5-8.5); NEUTROPHILS % 64.9 % (36.0-66.0); PLATELET COUNT, AUTOMATED 162 10^3/uL (150-450); RED BLOOD COUNT 4.16 10^6/uL (4.00-5.40); WHITE BLOOD COUNT 6.8 10^3/uL (4.0-10.0)
[2021-06-28 17:31] LABS: PERCENT SATURATION 11.1 % (13.2-45.0)
== END ==
LOC: M PLALAB 15:04
PROVIDERS: ATTEND Family Medicine
DX: D50.9 Iron deficiency anemia, unspecified (principal)

== ENCOUNTER 2021-07-03 08:41 | Outpatient (CLI) | payer OTHER ==
[~2021-07-03] VITALS: Ht 149.9 cm; Wt 55.9 kg
[~2021-07-03 08:41] MED LIST changes: +FERRIC CARBOXYMALTOSE INJ 750 MG, VIAL MATE ADAPTER 1 EACH in NS 250 ML IV ONE
[2021-07-03 08:49] VITALS: BP 117/66
[2021-07-03] MEDS ORDERED: FLON1SPR NARES (09:14)
[2021-07-03] MEDS ORDERED: ZYRTTAB8 PO (09:14)
[2021-07-03 10:00] VITALS: BP 111/56
[2021-07-03 11:00] VITALS: BP 118/67
[2021-07-03 11:30] VITALS: BP 110/61
== END 2021-07-03 11:30 | disposition home or self-care (01) ==
LOC: M INFU 08:41
PROVIDERS: ATTEND Family Medicine
DX: D50.9 Iron deficiency anemia, unspecified (principal); Z91.040 Latex allergy status
CPT/HCPCS: 96365; 96366; J1439

== ENCOUNTER 2021-07-10 09:55 | Outpatient (CLI) | payer OTHER ==
[~2021-07-10] VITALS: Ht 149.9 cm; Wt 55.9 kg
[~2021-07-10 09:55] MED LIST changes: +ACETAMINOPHEN TAB 650MG DOSE (2X325MG) PO SCH; -FERRIC CARBOXYMALTOSE INJ 750 MG, VIAL MATE ADAPTER 1 EACH in NS 250 ML IV ONE; +FLON1SPR NARES; +ZYRTTAB8 PO; +diphenhydrAMINE 25MG CAP PO SCH
[2021-07-10] MEDS ORDERED: FERRIC CARBOXYMALTOSE INJ 750 MG, VIAL MATE ADAPTER 1 EACH in NS 250 ML IV ONE (10:00)
[2021-07-10 10:03] VITALS: BP 117/62
[2021-07-10 12:00] VITALS: BP 105/55
[2021-07-10 13:22] VITALS: BP 102/55
== END 2021-07-10 13:25 | disposition home or self-care (01) ==
LOC: M INFU 09:55
PROVIDERS: ATTEND Family Medicine
DX: D50.9 Iron deficiency anemia, unspecified (principal); Z88.8 Allergy status to other drugs, medicaments and biological substances; Z91.040 Latex allergy status
CPT/HCPCS: 96365; 96366; J1439

== ENCOUNTER → 2021-11-24 | Outpatient (CLI) | payer OTHER ==
[~2021-11-24] MED LIST changes: -ACETAMINOPHEN TAB 650MG DOSE (2X325MG) PO SCH; -diphenhydrAMINE 25MG CAP PO SCH
[2021-11-24 16:21] LABS: BASO % 0.7 % (0.0-1.0); EOS # 0.2 10^3/uL (0.0-0.5); EOS % 2.6 % (0.0-3.0); HEMATOCRIT 41.2 % (36.0-47.0); HEMOGLOBIN 13.9 g/dl (12.0-15.5); LYMPH # 2.2 10^3/uL (1.5-5.0); LYMPH % 39.2 % (24.0-44.0); MEAN CORPUSCULAR HEMOGLOBIN 33.2 pg (27.0-33.0); MEAN CORPUSCULAR HGB CONC 33.7 g/dl (32.0-36.5); MEAN CORPUSCULAR VOLUME 98.3 fl (80.0-96.0); MONO # 0.3 10^3/uL (0.0-0.8); MONO % 5.2 % (2.0-8.0); PLATELET COUNT, AUTOMATED 184 10^3/uL (150-450); RED BLOOD COUNT 4.19 10^6/uL (4.00-5.40); WHITE BLOOD COUNT 5.7 10^3/uL (4.0-10.0)
[2021-11-24 16:47] LABS: ALBUMIN 4.4 GM/DL (3.2-5.2); ALT/SGPT 20 U/L (12-78); BILIRUBIN,TOTAL 0.3 MG/DL (0.2-1.0); BLOOD UREA NITROGEN 7 MG/DL (7-18); CALCIUM LEVEL 9.6 MG/DL (8.5-10.1); CARBON DIOXIDE LEVEL 30 MEQ/L (21-32); CHLORIDE LEVEL 106 MEQ/L (98-107); CREATININE FOR GFR 0.76 MG/DL (0.55-1.30); FERRITIN 285 NG/ML (8-252); GLOMERULAR FILTRATION RATE > 60.0 (>60); GLUCOSE, FASTING 70 MG/DL (70-100); IRON (FE) 69 UG/DL (50-170); PERCENT SATURATION 29.9 % (13.2-45.0); POTASSIUM SERUM 4.2 MEQ/L (3.5-5.1); SODIUM LEVEL 140 MEQ/L (136-145); TOTAL IRON BINDING CAPACITY 231 UG/DL (250-450); TOTAL PROTEIN 7.1 GM/DL (6.4-8.2)
[2021-11-24 16:55] LABS: TOTAL 25(OH) VITAMIN D 21.4 NG/ML (30.0-100.0)
== END ==
LOC: M LAB 15:46
PROVIDERS: ATTEND Physician Assistant
DX: D50.9 Iron deficiency anemia, unspecified (principal)

== ENCOUNTER → 2022-05-26 | Outpatient (CLI) | payer OTHER ==
[2022-05-26 10:27] LABS: BASO % 0.7 % (0.0-1.0); EOS # 0.2 10^3/uL (0.0-0.5); EOS % 5.6 % (0.0-3.0); HEMATOCRIT 37.5 % (36.0-47.0); HEMOGLOBIN 12.9 g/dl (12.0-15.5); LYMPH # 1.7 10^3/uL (1.5-5.0); LYMPH % 40.4 % (24.0-44.0); MEAN CORPUSCULAR HEMOGLOBIN 33.6 pg (27.0-33.0); MEAN CORPUSCULAR HGB CONC 34.4 g/dl (32.0-36.5); MEAN CORPUSCULAR VOLUME 97.7 fl (80.0-96.0); MONO # 0.3 10^3/uL (0.0-0.8); MONO % 6.3 % (2.0-8.0); NEUTROPHILS # 1.9 10^3/uL (1.5-8.5); NEUTROPHILS % 46.8 % (36.0-66.0); PLATELET COUNT, AUTOMATED 147 10^3/uL (150-450); RED BLOOD COUNT 3.84 10^6/uL (4.00-5.40); WHITE BLOOD COUNT 4.1 10^3/uL (4.0-10.0)
[2022-05-26 11:05] LABS: ALT/SGPT 22 U/L (12-78); BILIRUBIN,TOTAL 0.5 MG/DL (0.2-1.0); BLOOD UREA NITROGEN 10 MG/DL (7-18); CARBON DIOXIDE LEVEL 27 MEQ/L (21-32); CHLORIDE LEVEL 106 MEQ/L (98-107); CREATININE FOR GFR 0.67 MG/DL (0.55-1.30); FERRITIN 182 NG/ML (8-252); FREE T4 0.92 NG/DL (0.76-1.46); GLOMERULAR FILTRATION RATE > 60.0 (>60); GLUCOSE, FASTING 83 MG/DL (70-100); IRON (FE) 61 UG/DL (50-170); PERCENT SATURATION 28.9 % (13.2-45.0); POTASSIUM SERUM 4.4 MEQ/L (3.5-5.1); SODIUM LEVEL 136 MEQ/L (136-145); TOTAL IRON BINDING CAPACITY 211 UG/DL (250-450); TOTAL PROTEIN 6.6 GM/DL (6.4-8.2)
[2022-05-28 10:31] LABS: VITAMIN B12 LEVEL 319 PG/ML
[2022-05-28 16:11] LABS: ANA (HEP2) Negative (.)
== END ==
LOC: M LAB 09:50
PROVIDERS: ATTEND Physician Assistant
DX: D64.9 Anemia, unspecified (principal)

== ENCOUNTER → 2022-09-20 | Outpatient (CLI) | payer OTHER ==
[2022-09-20 13:33] LABS: BASO % 0.5 % (0.0-1.0); EOS # 0.2 10^3/uL (0.0-0.5); EOS % 3.1 % (0.0-3.0); HEMATOCRIT 40.9 % (36.0-47.0); HEMOGLOBIN 13.9 g/dl (12.0-15.5); LYMPH # 2.1 10^3/uL (1.5-5.0); LYMPH % 31.8 % (24.0-44.0); MEAN CORPUSCULAR HEMOGLOBIN 33.1 pg (27.0-33.0); MEAN CORPUSCULAR VOLUME 97.4 fl (80.0-96.0); MONO # 0.4 10^3/uL (0.0-0.8); MONO % 5.7 % (2.0-8.0); NEUTROPHILS # 3.8 10^3/uL (1.5-8.5); NEUTROPHILS % 58.6 % (36.0-66.0); PLATELET COUNT, AUTOMATED 197 10^3/uL (150-450); WHITE BLOOD COUNT 6.5 10^3/uL (4.0-10.0)
[2022-09-20 14:10] LABS: FERRITIN 145.8 NG/ML (7.3-270.7)
[2022-09-20 14:13] LABS: TOTAL 25(OH) VITAMIN D 18.9 NG/ML (20.0-100.0)
== END ==
LOC: M PLALAB 12:12
PROVIDERS: ATTEND Family Medicine
DX: D51.3 Other dietary vitamin B12 deficiency anemia (principal)

== ENCOUNTER → 2022-11-29 | Outpatient (CLI) | payer OTHER | LOC: M PLAIMG 12:17 | PROVIDERS: ATTEND Family Medicine | DX: M54.2 Cervicalgia (principal) ==

== ENCOUNTER → 2022-12-18 | Outpatient (CLI) | payer OTHER ==
[2022-12-18 15:55] LABS: URIC ACID 3.8 MG/DL (3.1-7.8)
[2022-12-18 15:57] LABS: C REACTIVE PROTEIN QUANTITATIV < 0.40 MG/DL (<1.0)
[2022-12-18 15:58] LABS: RHEUMATOID FACTOR QUANT 4.3 IU/ML (<14)
== END ==
LOC: M PLAIMG 12:28
PROVIDERS: ATTEND Family Medicine
DX: G56.03 Carpal tunnel syndrome, bilateral upper limbs (principal); M25.50 Pain in unspecified joint

== ENCOUNTER → 2023-01-09 | Outpatient (CLI) | payer OTHER | LOC: M PLAIMG 12:15 | PROVIDERS: ATTEND Physician Assistant | DX: R51.9 Headache, unspecified (principal) ==

== ENCOUNTER → 2023-02-14 | Outpatient (CLI) | payer OTHER | LOC: M RAD 16:13 | PROVIDERS: ATTEND Physician Assistant | DX: M54.2 Cervicalgia (principal) ==

== ENCOUNTER → 2023-03-13 | Outpatient (CLI) | payer OTHER | LOC: M RAD 15:20 | PROVIDERS: ATTEND Family Medicine | DX: R10.2 Pelvic and perineal pain (principal) ==

== ENCOUNTER → 2023-03-28 | Outpatient (CLI) | payer OTHER | LOC: M PLARAD 07:43 | PROVIDERS: ATTEND Physician Assistant | DX: R51.9 Headache, unspecified (principal); R94.02 Abnormal brain scan; G56.43 Causalgia of bilateral upper limbs ==

== ENCOUNTER → 2023-04-17 | Outpatient (CLI) | payer OTHER ==
[~2023-04-17] VITALS: Ht 149.9 cm; Wt 49.0 kg
[~2023-04-17] MED LIST changes: +FERRIC CARBOXYMALTOSE INJ 750 MG in NS 250 ML (>50kg) IV ONE
[2023-04-17 15:10] VITALS: BP 111/71; O2SAT 99
== END ==
LOC: M INFU 12:44
PROVIDERS: ATTEND Family Medicine
DX: D50.9 Iron deficiency anemia, unspecified (principal); Z88.8 Allergy status to other drugs, medicaments and biological substances
CPT/HCPCS: 96365; J1439

== ENCOUNTER → 2023-06-12 | Outpatient (CLI) | payer OTHER ==
[~2023-06-12] MED LIST changes: -FERRIC CARBOXYMALTOSE INJ 750 MG in NS 250 ML (>50kg) IV ONE
[2023-06-12 15:09] LABS: BASO % 0.6 % (0.0-1.0); EOS # 0.3 10^3/uL (0.0-0.5); EOS % 5.1 % (0.0-3.0); HEMATOCRIT 38.9 % (36.0-47.0); HEMOGLOBIN 13.5 g/dl (12.0-15.5); LYMPH # 1.5 10^3/uL (1.5-5.0); LYMPH % 29.1 % (24.0-44.0); MEAN CORPUSCULAR HEMOGLOBIN 34.1 pg (27.0-33.0); MEAN CORPUSCULAR HGB CONC 34.7 g/dl (32.0-36.5); MEAN CORPUSCULAR VOLUME 98.2 fl (80.0-96.0); MONO # 0.2 10^3/uL (0.0-0.8); MONO % 4.1 % (2.0-8.0); NEUTROPHILS # 3.1 10^3/uL (1.5-8.5); NEUTROPHILS % 60.7 % (36.0-66.0); PLATELET COUNT, AUTOMATED 152 10^3/uL (150-450); RED BLOOD COUNT 3.96 10^6/uL (4.00-5.40); WHITE BLOOD COUNT 5.1 10^3/uL (4.0-10.0)
[2023-06-12 15:16] LABS: FERRITIN 317.1 NG/ML (7.3-270.7)
[2023-06-12 15:17] LABS: C REACTIVE PROTEIN QUANTITATIV < 0.40 MG/DL (<1.0)
[2023-06-12 15:18] LABS: ALBUMIN 4.2 G/DL (3.2-5.2); ALKALINE PHOSPHATASE 68 U/L (46-116); ALT/SGPT 20 U/L (7.0-40); AST/SGOT 11 U/L (<34); BILIRUBIN,TOTAL 0.6 MG/DL (0.3-1.2); BLOOD UREA NITROGEN 8 MG/DL (9-23); CARBON DIOXIDE LEVEL 28 MMOL/L (20-31); CHLORIDE LEVEL 105 MMOL/L (98-107); CREATININE FOR GFR 0.59 MG/DL (0.55-1.30); FOLATE 19.16 NG/ML (>5.4); GLOMERULAR FILTRATION RATE > 60.0 (>60); GLUCOSE, FASTING 79 MG/DL (60-100); IRON (FE) 66 UG/DL (50-170); PERCENT SATURATION 28.1 % (13.2-45.0); POTASSIUM SERUM 4.2 MMOL/L (3.5-5.1); SODIUM LEVEL 140 MMOL/L (136-145); TOTAL IRON BINDING CAPACITY 235 UG/DL (250-425); TOTAL PROTEIN 6.5 G/DL (5.7-8.2)
[2023-06-12 15:19] LABS: VITAMIN B12 LEVEL 427 PG/ML (211-911)
[2023-06-12 15:29] LABS: ERYTHROCYTE SEDIMENTATION RATE < 1 mm/hr (0-20)
== END ==
LOC: M PLALAB 12:36
PROVIDERS: ATTEND Physician Assistant
DX: D50.9 Iron deficiency anemia, unspecified (principal)

== ENCOUNTER → 2023-07-23 | Outpatient (REF) | payer OTHER ==
[2023-07-23 14:12] LABS: BASO % 0.5 % (0.0-1.0); EOS # 0.1 10^3/uL (0.0-0.5); EOS % 2.2 % (0.0-3.0); HEMATOCRIT 37.9 % (36.0-47.0); LYMPH # 1.3 10^3/uL (1.5-5.0); LYMPH % 23.4 % (24.0-44.0); MEAN CORPUSCULAR HEMOGLOBIN 34.3 pg (27.0-33.0); MEAN CORPUSCULAR HGB CONC 34.3 g/dl (32.0-36.5); MONO # 0.3 10^3/uL (0.0-0.8); MONO % 5.1 % (2.0-8.0); NEUTROPHILS # 3.8 10^3/uL (1.5-8.5); NEUTROPHILS % 68.6 % (36.0-66.0); PLATELET COUNT, AUTOMATED 201 10^3/uL (150-450); RED BLOOD COUNT 3.79 10^6/uL (4.00-5.40); WHITE BLOOD COUNT 5.5 10^3/uL (4.0-10.0)
[2023-07-23 14:37] LABS: CPK CREATINE PHOSPHOKINASE 47 U/L (34-145); LDH LACTATE DEHYDROGENASE 135 U/L (120-246)
[2023-07-23 14:38] LABS: ALBUMIN 4.1 G/DL (3.2-5.2); ALKALINE PHOSPHATASE 58 U/L (46-116); ALT/SGPT 22 U/L (7.0-40); AST/SGOT 16 U/L (<34); BILIRUBIN,TOTAL 0.9 MG/DL (0.3-1.2); BLOOD UREA NITROGEN 7 MG/DL (9-23); CALCIUM LEVEL 8.8 MG/DL (8.5-10.1); CARBON DIOXIDE LEVEL 28 MMOL/L (20-31); CHLORIDE LEVEL 105 MMOL/L (98-107); CREATININE FOR GFR 0.59 MG/DL (0.55-1.30); GLOMERULAR FILTRATION RATE > 60.0 (>60); GLUCOSE, FASTING 72 MG/DL (60-100); POTASSIUM SERUM 3.9 MMOL/L (3.5-5.1); SODIUM LEVEL 140 MMOL/L (136-145); TOTAL PROTEIN 7.1 G/DL (5.7-8.2)
[2023-07-23 14:39] LABS: ERYTHROCYTE SEDIMENTATION RATE 18 mm/hr (0-20)
[2023-07-23 14:50] LABS: TOTAL 25(OH) VITAMIN D 22.3 NG/ML (20.0-100.0)
[2023-07-23 14:58] LABS: C REACTIVE PROTEIN QUANTITATIV < 0.40 MG/DL (<1.0)
[2023-07-23 14:59] LABS: COMPLEMENT C3 74.4 MG/DL (82.0-160.0); COMPLEMENT C4 18.7 MG/DL (12-36)
== END ==
LOC: M SFHCRHEU 09:21
PROVIDERS: ATTEND Internal Medicine Rheumatology
DX: M35.3 Polymyalgia rheumatica (principal); R53.1 Weakness; R21 Rash and other nonspecific skin eruption; I73.00 Raynaud's syndrome without gangrene; R20.0 Anesthesia of skin

== ENCOUNTER → 2023-08-28 | Outpatient (CLI) | payer OTHER | LOC: M PLAIMG 12:20 | PROVIDERS: ATTEND Internal Medicine Rheumatology | DX: M35.3 Polymyalgia rheumatica (principal); R53.1 Weakness; R21 Rash and other nonspecific skin eruption; I73.00 Raynaud's syndrome without gangrene; R20.0 Anesthesia of skin ==

== ENCOUNTER → 2023-10-02 | Outpatient (CLI) | payer OTHER | LOC: M PLAIMG 12:28 | PROVIDERS: ATTEND Family Medicine | DX: R07.81 Pleurodynia (principal) ==

== ENCOUNTER → 2023-10-31 | Outpatient (CLI) | payer OTHER ==
[2023-10-31 16:38] LABS: CPK CREATINE PHOSPHOKINASE 56 U/L (34-145)
[2023-10-31 16:41] LABS: FREE T4 1.02 NG/DL (0.89-1.76)
[2023-10-31 16:43] LABS: THYROID PEROXIDASE ANTIBODY < 28.0 U/ML (<60.0)
[2023-10-31 16:46] LABS: THYROID STIMULATING HORMONE 3.028 uIU/ML (0.55-4.78)
== END ==
LOC: M PLALAB 12:36
PROVIDERS: ATTEND Family Medicine
DX: M62.81 Muscle weakness (generalized) (principal)

== ENCOUNTER → 2023-11-28 | Outpatient (CLI) | payer OTHER | LOC: M WHC 07:04 | PROVIDERS: ATTEND Advanced Practice Midwife | DX: N92.1 Excessive and frequent menstruation with irregular cycle (principal); N93.9 Abnormal uterine and vaginal bleeding, unspecified; N94.6 Dysmenorrhea, unspecified ==

== ENCOUNTER → 2023-12-06 | Outpatient (CLI) | payer OTHER ==
[2023-12-06 17:49] LABS: HEMATOCRIT 35.9 % (36.0-47.0); HEMOGLOBIN 12.4 g/dl (12.0-15.5); MEAN CORPUSCULAR HEMOGLOBIN 33.3 pg (27.0-33.0); MEAN CORPUSCULAR HGB CONC 34.5 g/dl (32.0-36.5); MEAN CORPUSCULAR VOLUME 96.5 fl (80.0-96.0); PLATELET COUNT, AUTOMATED 152 10^3/uL (150-450); RED BLOOD COUNT 3.72 10^6/uL (4.00-5.40); WHITE BLOOD COUNT 5.8 10^3/uL (4.0-10.0)
== END ==
LOC: M PLALAB 15:17
PROVIDERS: ATTEND Advanced Practice Midwife
DX: N92.1 Excessive and frequent menstruation with irregular cycle (principal)

== ENCOUNTER → 2024-01-06 | Outpatient (CLI) | payer OTHER | LOC: M RAD 10:39 | PROVIDERS: ATTEND Internal Medicine Rheumatology | DX: R76.8 Other specified abnormal immunological findings in serum (principal) ==

== ENCOUNTER → 2024-01-22 | Outpatient (CLI) | payer OTHER ==
[~2024-01-22] MED LIST changes: +GASTROGRAFIN SOLUTION 30ML As Ordered ONE; +ISOVUE-370 76% 100ML VIAL As Ordered ONE
== END ==
LOC: M RAD 09:15
PROVIDERS: ATTEND Family Medicine
DX: R10.84 Generalized abdominal pain (principal); R90.89 Other abnormal findings on diagnostic imaging of central nervous system; R76.8 Other specified abnormal immunological findings in serum
CPT/HCPCS: 74177; Q9963; Q9967

== ENCOUNTER → 2024-02-14 | Outpatient (CLI) | payer OTHER ==
[~2024-02-14] MED LIST changes: -GASTROGRAFIN SOLUTION 30ML As Ordered ONE; -ISOVUE-370 76% 100ML VIAL As Ordered ONE
[2024-02-14 13:56] LABS: APPEARANCE, URINE CLEAR (CLEAR); BACTERIA, URINE AUTO NEGATIVE (NEGATIVE); BILIRUBIN, URINE AUTO NEGATIVE (NEGATIVE); BLOOD, URINE BLOOD 1+ (NEGATIVE); COLOR, URINE YELLOW (YELLOW); GLUCOSE, URINE (UA) AUTO NEGATIVE (NEGATIVE); KETONE, URINE AUTO NEGATIVE (NEGATIVE); LEUKOCYTE ESTERASE, URINE AUTO 2+ (NEGATIVE); NITRITE, URINE AUTO NEGATIVE (NEGATIVE); PROTEIN, URINE AUTO NEGATIVE (NEGATIVE); RBC, URINE AUTO 1 /HPF (0-3); SPECIFIC GRAVITY URINE AUTO 1.009 (1.002-1.035); SQUAMOUS EPITHELIAL CELL UR AU 1 /HPF (0-6); UROBILINOGEN, URINE AUTO 0.2 mg/dL (0.0-2.0); WBC, URINE AUTO 5 /HPF (0-3)
[2024-02-14 13:57] LABS: BASO % 0.6 % (0.0-1.0); EOS # 0.3 10^3/uL (0.0-0.5); HEMATOCRIT 41.9 % (36.0-47.0); HEMOGLOBIN 14.2 g/dl (12.0-15.5); LYMPH # 1.8 10^3/uL (1.5-5.0); LYMPH % 35.3 % (24.0-44.0); MEAN CORPUSCULAR HEMOGLOBIN 32.9 pg (27.0-33.0); MEAN CORPUSCULAR HGB CONC 33.9 g/dl (32.0-36.5); MEAN CORPUSCULAR VOLUME 97.2 fl (80.0-96.0); MONO # 0.3 10^3/uL (0.0-0.8); MONO % 5.6 % (2.0-8.0); NEUTROPHILS # 2.6 10^3/uL (1.5-8.5); NEUTROPHILS % 52.1 % (36.0-66.0); PLATELET COUNT, AUTOMATED 194 10^3/uL (150-450); RED BLOOD COUNT 4.31 10^6/uL (4.00-5.40)
[2024-02-14 14:08] LABS: ERYTHROCYTE SEDIMENTATION RATE < 1 mm/hr (0-20)
[2024-02-14 14:22] LABS: CREATININE,RANDOM URINE 39.2 MG/DL
[2024-02-14 14:25] LABS: C REACTIVE PROTEIN QUANTITATIV < 0.40 MG/DL (<1.0)
[2024-02-14 14:27] LABS: ALBUMIN 3.8 G/DL (3.2-5.2); ALKALINE PHOSPHATASE 42 U/L (46-116); ALT/SGPT 18 U/L (7.0-40); AST/SGOT < 8 U/L (<34); BILIRUBIN,TOTAL 0.6 MG/DL (0.3-1.2); BLOOD UREA NITROGEN 10 MG/DL (9-23); CALCIUM LEVEL 8.8 MG/DL (8.5-10.1); CARBON DIOXIDE LEVEL 28 MMOL/L (20-31); CHLORIDE LEVEL 107 MMOL/L (98-107); CREATININE FOR GFR 0.66 MG/DL (0.55-1.30); GLOMERULAR FILTRATION RATE > 60.0 (>60); GLUCOSE, FASTING 90 MG/DL (60-100); POTASSIUM SERUM 3.9 MMOL/L (3.5-5.1); SODIUM LEVEL 139 MMOL/L (136-145); TOTAL PROTEIN 6.5 G/DL (5.7-8.2)
[2024-02-14 14:38] LABS: TOTAL PROTEIN,RANDOM URINE < 6.0 MG/DL (0.0-14.0)
[2024-02-14 14:39] LABS: COMPLEMENT C3 61.8 MG/DL (82.0-160.0); COMPLEMENT C4 12.1 MG/DL (12-36); HEPATITIS B SURFACE ANTIGEN NEGATIVE (NEGATIVE)
[2024-02-14 15:00] LABS: HEPATITIS B CORE ANTIBODY IGM NEGATIVE (NEGATIVE); HEPATITIS C VIRUS ABY INDEX < 0.02 INDEX (<0.8)
== END ==
LOC: M PLALAB 10:20
PROVIDERS: ATTEND Internal Medicine Rheumatology
DX: M34.9 Systemic sclerosis, unspecified (principal); M35.3 Polymyalgia rheumatica; R53.1 Weakness; R21 Rash and other nonspecific skin eruption; I73.00 Raynaud's syndrome without gangrene; R20.0 Anesthesia of skin; D64.9 Anemia, unspecified; M79.604 Pain in right leg; H04.123 Dry eye syndrome of bilateral lacrimal glands

== ENCOUNTER → 2024-02-19 | Outpatient (CLI) | payer OTHER | LOC: M PLAIMG 08:34 | PROVIDERS: ATTEND Internal Medicine Rheumatology | DX: M34.9 Systemic sclerosis, unspecified (principal) ==

== ENCOUNTER → 2024-02-25 | Outpatient (CLI) | payer OTHER ==
[~2024-02-25] MED LIST changes: +E-Z-GAS II EFFERVESCENT PACKET (SODIUM BICARB./CITRIC ACID/SIMETHICONE) As Ordered ONE; +E-Z-HD 98% w/w 340GM SUSP BTL As Ordered ONE; +E-Z-PAQUE 96% w/w SUSP 176GM BTL As Ordered ONE
== END ==
LOC: M RAD 10:41
PROVIDERS: ATTEND Physician Assistant Medical
DX: R13.10 Dysphagia, unspecified (principal)

== ENCOUNTER → 2024-02-27 | Outpatient (CLI) | payer OTHER ==
[~2024-02-27] MED LIST changes: -E-Z-GAS II EFFERVESCENT PACKET (SODIUM BICARB./CITRIC ACID/SIMETHICONE) As Ordered ONE; -E-Z-HD 98% w/w 340GM SUSP BTL As Ordered ONE; -E-Z-PAQUE 96% w/w SUSP 176GM BTL As Ordered ONE
== END ==
LOC: M RAD 12:04
PROVIDERS: ATTEND Internal Medicine Rheumatology
DX: M79.604 Pain in right leg (principal); M79.605 Pain in left leg

== ENCOUNTER → 2024-05-29 | Outpatient (REF) | payer OTHER ==
[2024-05-29 13:02] LABS: C REACTIVE PROTEIN QUANTITATIV < 0.40 MG/DL (<1.0)
[2024-05-29 13:03] LABS: ALBUMIN 4.3 G/DL (3.2-5.2); ALKALINE PHOSPHATASE 48 U/L (46-116); ALT/SGPT 16 U/L (7.0-40); AST/SGOT 11 U/L (<34); BILIRUBIN,TOTAL 0.5 MG/DL (0.3-1.2); BLOOD UREA NITROGEN 10 MG/DL (9-23); CALCIUM LEVEL 9.1 MG/DL (8.5-10.1); CARBON DIOXIDE LEVEL 30 MMOL/L (20-31); CHLORIDE LEVEL 107 MMOL/L (98-107); CREATININE FOR GFR 0.75 MG/DL (0.55-1.30); GLOMERULAR FILTRATION RATE > 60.0 (>60); GLUCOSE, FASTING 93 MG/DL (60-100); POTASSIUM SERUM 4.1 MMOL/L (3.5-5.1); SODIUM LEVEL 139 MMOL/L (136-145); TOTAL PROTEIN 6.9 G/DL (5.7-8.2)
[2024-05-29 13:34] LABS: BASO % 0.5 % (0.0-1.0); EOS # 0.2 10^3/uL (0.0-0.5); EOS % 6.5 % (0.0-3.0); HEMATOCRIT 41.4 % (36.0-47.0); LYMPH # 1.1 10^3/uL (1.5-5.0); LYMPH % 28.8 % (24.0-44.0); MEAN CORPUSCULAR HEMOGLOBIN 33.5 pg (27.0-33.0); MEAN CORPUSCULAR HGB CONC 33.8 g/dl (32.0-36.5); MONO # 0.3 10^3/uL (0.0-0.8); NEUTROPHILS # 2.1 10^3/uL (1.5-8.5); NEUTROPHILS % 56.9 % (36.0-66.0); PLATELET COUNT, AUTOMATED 168 10^3/uL (150-450); RED BLOOD COUNT 4.18 10^6/uL (4.00-5.40); WHITE BLOOD COUNT 3.7 10^3/uL (4.0-10.0)
== END ==
LOC: M SFHCRHEU 09:14
PROVIDERS: ATTEND Internal Medicine Rheumatology
DX: M34.9 Systemic sclerosis, unspecified (principal)

== ENCOUNTER → 2024-07-31 | Outpatient (CLI) | payer OTHER | LOC: M PLAIMG 15:14 | PROVIDERS: ATTEND Family Medicine | DX: M79.604 Pain in right leg (principal) ==

== ENCOUNTER → 2024-08-14 | Outpatient (CLI) | payer OTHER | LOC: M PLARAD 15:10 | PROVIDERS: ATTEND Family Medicine | DX: M34.9 Systemic sclerosis, unspecified (principal); M54.50 Low back pain, unspecified; M79.604 Pain in right leg ==

== ENCOUNTER → 2024-10-06 | Outpatient (CLI) | payer OTHER ==
[~2024-10-06] MED LIST changes: +PROHANCE 279.3MG/ML 5ML VIAL As Ordered ONE
== END ==
LOC: M RAD 11:19
PROVIDERS: ATTEND Family Medicine
DX: M79.604 Pain in right leg (principal)
CPT/HCPCS: 73720; A9576

== ENCOUNTER → 2024-10-09 | Outpatient (CLI) | payer OTHER ==
[~2024-10-09] MED LIST changes: -PROHANCE 279.3MG/ML 5ML VIAL As Ordered ONE
== END ==
LOC: M PLAIMG 12:23
PROVIDERS: ATTEND Internal Medicine Rheumatology
DX: M34.9 Systemic sclerosis, unspecified (principal)

== ENCOUNTER → 2024-10-12 | Outpatient (CLI) | payer OTHER ==
[2024-10-12 15:42] LABS: C REACTIVE PROTEIN QUANTITATIV < 0.50 MG/DL (<1.0)
[2024-10-12 15:43] LABS: CPK CREATINE PHOSPHOKINASE 96 U/L (34-145)
[2024-10-12 15:44] LABS: COMPLEMENT C3 83.3 MG/DL (84.0-160.0)
[2024-10-12 15:46] LABS: BASO % 0.3 % (0.0-1.0); EOS # 0.1 10^3/uL (0.0-0.5); EOS % 1.4 % (0.0-3.0); HEMATOCRIT 37.2 % (36.0-47.0); LYMPH # 1.3 10^3/uL (1.5-5.0); LYMPH % 23.2 % (24.0-44.0); MEAN CORPUSCULAR HEMOGLOBIN 33.4 pg (27.0-33.0); MEAN CORPUSCULAR HGB CONC 34.9 g/dl (32.0-36.5); MEAN CORPUSCULAR VOLUME 95.6 fl (80.0-96.0); MONO # 0.2 10^3/uL (0.0-0.8); NEUTROPHILS # 4.1 10^3/uL (1.5-8.5); NEUTROPHILS % 70.8 % (36.0-66.0); PLATELET COUNT, AUTOMATED 207 10^3/uL (150-450); RED BLOOD COUNT 3.89 10^6/uL (4.00-5.40); WHITE BLOOD COUNT 5.8 10^3/uL (4.0-10.0)
[2024-10-12 15:48] LABS: APPEARANCE, URINE CLEAR (CLEAR); BACTERIA, URINE AUTO NEGATIVE (NEGATIVE); BILIRUBIN, URINE AUTO NEGATIVE (NEGATIVE); BLOOD, URINE BLOOD NEGATIVE (NEGATIVE); COLOR, URINE STRAW (YELLOW); GLUCOSE, URINE (UA) AUTO NEGATIVE (NEGATIVE); KETONE, URINE AUTO NEGATIVE (NEGATIVE); LEUKOCYTE ESTERASE, URINE AUTO NEGATIVE (NEGATIVE); NITRITE, URINE AUTO NEGATIVE (NEGATIVE); PROTEIN, URINE AUTO NEGATIVE (NEGATIVE); RBC, URINE AUTO 1 /HPF (0-3); SPECIFIC GRAVITY URINE AUTO 1.005 (1.002-1.035); SQUAMOUS EPITHELIAL CELL UR AU 1 /HPF (0-6); UROBILINOGEN, URINE AUTO 0.2 mg/dL (0.0-2.0); WBC, URINE AUTO 0 /HPF (0-3)
[2024-10-12 15:50] LABS: ALBUMIN 4.1 G/DL (3.2-5.2); ALKALINE PHOSPHATASE 44 U/L (35-104); ALT/SGPT 13 U/L (7.0-40); AST/SGOT 12 U/L (<34); BILIRUBIN,TOTAL 0.4 MG/DL (0.3-1.2); BLOOD UREA NITROGEN < 5 MG/DL (9-23); CALCIUM LEVEL 9.1 MG/DL (8.5-10.1); CARBON DIOXIDE LEVEL 28 MMOL/L (20-31); CHLORIDE LEVEL 109 MMOL/L (98-107); CREATININE FOR GFR 0.65 MG/DL (0.55-1.30); GLOMERULAR FILTRATION RATE > 60.0 (>60); GLUCOSE, FASTING 85 MG/DL (60-100); POTASSIUM SERUM 3.9 MMOL/L (3.5-5.1); SODIUM LEVEL 143 MMOL/L (136-145); TOTAL PROTEIN 6.6 G/DL (5.7-8.2)
[2024-10-12 16:16] LABS: CREATININE,RANDOM URINE 25.8 MG/DL
[2024-10-12 16:22] LABS: TOTAL PROTEIN,RANDOM URINE < 6.0 MG/DL (0.0-14.0)
[2024-10-12 16:42] LABS: ERYTHROCYTE SEDIMENTATION RATE 4 mm/hr (0-20)
[2024-10-13 15:56] LABS: ALDOLASE 4.1 U/L (< OR = 8.1)
== END ==
LOC: M PLALAB 12:27
PROVIDERS: ATTEND Internal Medicine Rheumatology
DX: R21 Rash and other nonspecific skin eruption (principal); I73.00 Raynaud's syndrome without gangrene; R53.1 Weakness; R20.0 Anesthesia of skin; M34.9 Systemic sclerosis, unspecified

== ENCOUNTER 2024-12-07 09:33 | Day surgery (SDC) | payer OTHER ==
[~2024-12-07] VITALS: Ht 149.9 cm; Wt 53.1 kg
[~2024-12-07 09:33] MED LIST changes: +ADDE20CA3 PO; +CETI10TA PO; +GABA-1171 PO; +METH2.5T48 PO; +PROA1AER2 INH
[2024-12-07] MEDS ORDERED: LR 1,000 ML IV SCH ×2 (10:05→14:05)
[2024-12-07 10:18] LABS: HEMATOCRIT 36.7 % (36.0-47.0); HEMOGLOBIN 12.5 g/dl (12.0-15.5)
[2024-12-07] MEDS ORDERED: propofoL 200 MG/20 ML VIAL As Ordered ONE (10:49)
[2024-12-07] MEDS ORDERED: ROCURONIUM BROMIDE 50MG/5ML VIAL As Ordered ONE (10:49)
[2024-12-07] MEDS ORDERED: GLYCOPYRROLATE INJ 0.2 MG/ML 2 ML VIAL As Ordered ONE (10:49)
[2024-12-07] MEDS ORDERED: LIDOCAINE 2% 100MG/5ML SDV (FOR ANES.) As Ordered ONE (10:49)
[2024-12-07] MEDS ORDERED: ONDANSETRON 4MG 2ML VIAL As Ordered ONE (10:50)
[2024-12-07] MEDS ORDERED: SUGAMMADEX SODIUM 500 MG/5 ML VIAL (BRIDION) As Ordered ONE (10:50)
[2024-12-07] MEDS ORDERED: KETOROLAC 60MG 2ML VIAL As Ordered ONE (10:50)
[2024-12-07] MEDS ORDERED: METOCLOPRAMIDE INJ 10MG/2ML VIAL As Ordered ONE (10:50)
[2024-12-07] MEDS ORDERED: fentaNYL 100 MCG/2 ML INJECTION As Ordered ONE (10:54)
[2024-12-07] MEDS ORDERED: MIDAZOLAM INJ 2MG/2ML VIAL As Ordered ONE (10:54)
[2024-12-07] MEDS ORDERED: PHENYLephrine 500MCG 5ML (100MCG/ML) SYRINGE As Ordered ONE (13:06)
[2024-12-07] MEDS ORDERED: ACETAMINOPHEN 1000MG/100ML IV BAG As Ordered ONE (13:27)
[2024-12-07] MEDS: OXYMETAZOLINE 0.05% NASAL SPRAY As Ordered ONE (13:33)
[2024-12-07] MEDS: LEVONORGESTREL 52MG (MIRENA) IUD As Ordered ONE (14:00)
[2024-12-07] MEDS ORDERED: HYDROMORPHONE HCL 0.5 MG/ 0.5 ML SYRINGE IV PRN (14:05)
[2024-12-07] MEDS ORDERED: fentaNYL 100 MCG/2 ML INJECTION IV PRN (14:05)
[2024-12-07] MEDS ORDERED: ONDANSETRON 4MG 2ML VIAL IV PRN (14:05)
[2024-12-07] MEDS: oxyCODONE 5MG TAB PO PRN (14:28)
[2024-12-07 16:20] VITALS: BP 101/68; TEMP 96.6; O2SAT 100
== END 2024-12-07 16:26 | disposition home or self-care (01) ==
LOC: M SDC 09:33
PROVIDERS: ATTEND Obstetrics & Gynecology
DX: N80.9 Endometriosis, unspecified (principal); Z30.430 Encounter for insertion of intrauterine contraceptive device; F84.0 Autistic disorder; Z88.1 Allergy status to other antibiotic agents; Z91.011 Allergy to milk products; Z91.018 Allergy to other foods; Z91.040 Latex allergy status; Z79.899 Other long term (current) drug therapy
CPT/HCPCS: 36415; 49320; 58300; 81025; 85014; 85018; 86850; 86900; 86901; J0131; J0665; J1100; J1596; J2250; J2371; J2405; J2765; J3010; J7298

== ENCOUNTER → 2024-12-30 | Outpatient (REF) | payer OTHER ==
[2024-12-30 18:36] LABS: Trichomonas vaginalis (AMP) NOT DETECTED (NEGATIVE)
[2024-12-30 19:00] LABS: GC DNA AMPLIFICATION NEGATIVE (NEGATIVE)
== END ==
LOC: M SFHCWAGY 17:05
PROVIDERS: ATTEND Obstetrics & Gynecology
DX: Z30.431 Encounter for routine checking of intrauterine contraceptive device (principal); R11.0 Nausea

== ENCOUNTER → 2025-01-08 | Outpatient (CLI) | payer OTHER ==
[2025-01-08 08:39] LABS: BASO % 0.9 % (0.0-1.0); EOS # 0.2 10^3/uL (0.0-0.5); EOS % 5.4 % (0.0-3.0); HEMATOCRIT 40.2 % (36.0-47.0); HEMOGLOBIN 13.9 g/dl (12.0-15.5); LYMPH # 1.1 10^3/uL (1.5-5.0); LYMPH % 33.1 % (24.0-44.0); MEAN CORPUSCULAR HEMOGLOBIN 33.1 pg (27.0-33.0); MEAN CORPUSCULAR HGB CONC 34.6 g/dl (32.0-36.5); MEAN CORPUSCULAR VOLUME 95.7 fl (80.0-96.0); MONO # 0.2 10^3/uL (0.0-0.8); MONO % 5.4 % (2.0-8.0); NEUTROPHILS # 1.8 10^3/uL (1.5-8.5); NEUTROPHILS % 54.9 % (36.0-66.0); PLATELET COUNT, AUTOMATED 143 10^3/uL (150-450); WHITE BLOOD COUNT 3.3 10^3/uL (4.0-10.0)
[2025-01-08 09:10] LABS: ALBUMIN 4.3 G/DL (3.2-5.2); ALKALINE PHOSPHATASE 48 U/L (35-104); ALT/SGPT 15 U/L (7.0-40); AST/SGOT 9 U/L (<34); BILIRUBIN,TOTAL 0.5 MG/DL (0.3-1.2); BLOOD UREA NITROGEN 12 MG/DL (9-23); CALCIUM LEVEL 9.3 MG/DL (8.5-10.1); CARBON DIOXIDE LEVEL 29 MMOL/L (20-31); CHLORIDE LEVEL 106 MMOL/L (98-107); CREATININE FOR GFR 0.68 MG/DL (0.55-1.30); GLOMERULAR FILTRATION RATE > 60.0 (>60); GLUCOSE, FASTING 84 MG/DL (60-100); IRON (FE) 78 UG/DL (50-170); SODIUM LEVEL 142 MMOL/L (136-145); TOTAL IRON BINDING CAPACITY 244 UG/DL (250-425); TOTAL PROTEIN 6.8 G/DL (5.7-8.2)
[2025-01-08 09:13] LABS: FERRITIN 235.5 NG/ML (7.3-270.7); THYROID STIMULATING HORMONE 2.768 uIU/ML (0.55-4.78)
== END ==
LOC: M LAB 07:51
PROVIDERS: ATTEND Family Medicine
DX: R94.6 Abnormal results of thyroid function studies (principal); E61.0 Copper deficiency

== ENCOUNTER → 2025-01-08 | Outpatient (CLI) | payer OTHER ==
[2025-01-08 08:32] LABS: BASO % 0.9 % (0.0-1.0); EOS # 0.2 10^3/uL (0.0-0.5); EOS % 5.4 % (0.0-3.0); HEMATOCRIT 40.2 % (36.0-47.0); HEMOGLOBIN 13.9 g/dl (12.0-15.5); LYMPH # 1.1 10^3/uL (1.5-5.0); LYMPH % 33.1 % (24.0-44.0); MEAN CORPUSCULAR HEMOGLOBIN 33.1 pg (27.0-33.0); MEAN CORPUSCULAR HGB CONC 34.6 g/dl (32.0-36.5); MEAN CORPUSCULAR VOLUME 95.7 fl (80.0-96.0); MONO # 0.2 10^3/uL (0.0-0.8); MONO % 5.4 % (2.0-8.0); NEUTROPHILS # 1.8 10^3/uL (1.5-8.5); NEUTROPHILS % 54.9 % (36.0-66.0); PLATELET COUNT, AUTOMATED 143 10^3/uL (150-450); WHITE BLOOD COUNT 3.3 10^3/uL (4.0-10.0)
[2025-01-08 08:52] LABS: ERYTHROCYTE SEDIMENTATION RATE < 1 mm/hr (0-20)
[2025-01-08 08:54] LABS: C REACTIVE PROTEIN QUANTITATIV < 0.50 MG/DL (<1.0)
[2025-01-08 08:55] LABS: ALBUMIN 4.3 G/DL (3.2-5.2); ALKALINE PHOSPHATASE 48 U/L (35-104); ALT/SGPT 14 U/L (7.0-40); AST/SGOT 9 U/L (<34); BILIRUBIN,TOTAL 0.6 MG/DL (0.3-1.2); BLOOD UREA NITROGEN 12 MG/DL (9-23); CALCIUM LEVEL 9.1 MG/DL (8.5-10.1); CARBON DIOXIDE LEVEL 29 MMOL/L (20-31); CHLORIDE LEVEL 106 MMOL/L (98-107); CREATININE FOR GFR 0.69 MG/DL (0.55-1.30); GLOMERULAR FILTRATION RATE > 60.0 (>60); GLUCOSE, FASTING 84 MG/DL (60-100); SODIUM LEVEL 142 MMOL/L (136-145); TOTAL PROTEIN 6.8 G/DL (5.7-8.2)
== END ==
LOC: M LAB 07:53
PROVIDERS: ATTEND Internal Medicine Rheumatology
DX: M34.9 Systemic sclerosis, unspecified (principal)

== ENCOUNTER → 2025-01-15 | Outpatient (CLI) | payer OTHER ==
[~2025-01-15] MED LIST changes: +ISOVUE-370 76% 100ML VIAL As Ordered ONE
== END ==
LOC: M RAD 16:38
PROVIDERS: ATTEND Family Medicine
DX: R68.81 Early satiety (principal); R11.0 Nausea
CPT/HCPCS: 74177; Q9967

== ENCOUNTER → 2025-05-24 | Outpatient (REF) | payer OTHER ==
[~2025-05-24] MED LIST changes: -ISOVUE-370 76% 100ML VIAL As Ordered ONE; +URSO1TAB2 PO; -URSO1TAB8 PO
[2025-05-24 15:37] LABS: AMORPHOUS SEDIMENT SMALL (NEGATIVE); APPEARANCE, URINE CLOUDY (CLEAR); BACTERIA, URINE AUTO NEGATIVE (NEGATIVE); BILIRUBIN, URINE AUTO NEGATIVE (NEGATIVE); BLOOD, URINE BLOOD NEGATIVE (NEGATIVE); GLUCOSE, URINE (UA) AUTO NEGATIVE (NEGATIVE); KETONE, URINE AUTO NEGATIVE (NEGATIVE); LEUKOCYTE ESTERASE, URINE AUTO NEGATIVE (NEGATIVE); NITRITE, URINE AUTO NEGATIVE (NEGATIVE); PROTEIN, URINE AUTO NEGATIVE (NEGATIVE); RBC, URINE AUTO 1 /HPF (0-3); SPECIFIC GRAVITY URINE AUTO 1.017 (1.002-1.035); SQUAMOUS EPITHELIAL CELL UR AU 5 /HPF (0-6); UROBILINOGEN, URINE AUTO 4.0 mg/dL (0.0-2.0); WBC, URINE AUTO 3 /HPF (0-3)
[2025-05-24 15:54] LABS: TOTAL PROTEIN,RANDOM URINE 15.8 MG/DL (0.0-14.0)
== END ==
LOC: M SFHCRHEU 08:57
PROVIDERS: ATTEND Internal Medicine Rheumatology
DX: M34.9 Systemic sclerosis, unspecified (principal)

== ENCOUNTER → 2025-06-09 | Outpatient (REF) | payer OTHER | LOC: M LAB REF 17:05 | PROVIDERS: ATTEND Family Medicine | DX: R30.0 Dysuria (principal) ==

== ENCOUNTER → 2025-06-09 | Outpatient (CLI) | payer OTHER ==
[2025-06-09 16:40] LABS: BASO # 0.0 10^3/uL (0.0-0.2); BASO % 0.8 % (0.0-1.0); EOS # 0.3 10^3/uL (0.0-0.5); EOS % 5.3 % (0.0-3.0); LYMPH # 1.4 10^3/uL (1.5-5.0); LYMPH % 26.2 % (24.0-44.0); MONO # 0.2 10^3/uL (0.0-0.8); MONO % 4.2 % (2.0-8.0); NEUTROPHILS # 3.3 10^3/uL (1.5-8.5); NEUTROPHILS % 63.1 % (36.0-66.0); PLATELET COUNT, AUTOMATED 154 10^3/uL (150-450)
[2025-06-09 16:47] LABS: ALT/SGPT 33 U/L (7.0-40); AST/SGOT 22 U/L (<34); C REACTIVE PROTEIN QUANTITATIV < 0.50 MG/DL (<1.0); CALCIUM LEVEL 8.9 MG/DL (8.5-10.1); CARBON DIOXIDE LEVEL 29 MMOL/L (20-31); CHLORIDE LEVEL 105 MMOL/L (98-107); CREATININE FOR GFR 0.62 MG/DL (0.55-1.30); GLOMERULAR FILTRATION RATE > 90.0 (>60); POTASSIUM SERUM 3.8 MMOL/L (3.5-5.1); SODIUM LEVEL 142 MMOL/L (136-145)
[2025-06-09 16:57] LABS: ERYTHROCYTE SEDIMENTATION RATE < 1 mm/hr (0-20)
== END ==
LOC: M PLALAB 12:27
PROVIDERS: ATTEND Internal Medicine Rheumatology
DX: M34.9 Systemic sclerosis, unspecified (principal); R30.0 Dysuria

== ENCOUNTER → 2025-07-02 | Outpatient (CLI) | payer OTHER ==
[2025-07-02 18:03] LABS: BASO # 0.0 10^3/uL (0.0-0.2); BASO % 0.6 % (0.0-1.0); EOS # 0.2 10^3/uL (0.0-0.5); EOS % 3.3 % (0.0-3.0); LYMPH # 1.4 10^3/uL (1.5-5.0); LYMPH % 26.0 % (24.0-44.0); MONO # 0.4 10^3/uL (0.0-0.8); MONO % 6.9 % (2.0-8.0); NEUTROPHILS # 3.4 10^3/uL (1.5-8.5); NEUTROPHILS % 63.0 % (36.0-66.0); PLATELET COUNT, AUTOMATED 167 10^3/uL (150-450)
[2025-07-02 18:16] LABS: ERYTHROCYTE SEDIMENTATION RATE 2 mm/hr (0-20)
[2025-07-02 18:32] LABS: C REACTIVE PROTEIN QUANTITATIV < 0.50 MG/DL (<1.0)
== END ==
LOC: M LAB 16:38
PROVIDERS: ATTEND Nurse Practitioner Adult Health
DX: M25.571 Pain in right ankle and joints of right foot (principal)

== ENCOUNTER → 2025-08-27 | Outpatient (CLI) | payer OTHER ==
[~2025-08-27] MED LIST changes: +ISOVUE-370 76% 100 ML VIAL As Ordered ONE
== END ==
LOC: M RAD 07:11
PROVIDERS: ATTEND Physician Assistant
DX: R22.1 Localized swelling, mass and lump, neck (principal)
CPT/HCPCS: 70491; Q9967

== ENCOUNTER → 2025-09-13 | Outpatient (REF) | payer OTHER ==
[~2025-09-13] MED LIST changes: -ISOVUE-370 76% 100 ML VIAL As Ordered ONE
[2025-09-13 18:26] LABS: APPEARANCE, URINE CLOUDY (CLEAR); BACTERIA, URINE AUTO 1+ (NEGATIVE); BILIRUBIN, URINE AUTO 1+ (NEGATIVE); BLOOD, URINE BLOOD NEGATIVE (NEGATIVE); GLUCOSE, URINE (UA) AUTO NEGATIVE (NEGATIVE); KETONE, URINE AUTO NEGATIVE (NEGATIVE); LEUKOCYTE ESTERASE, URINE AUTO 2+ (NEGATIVE); MUCUS, URINE LARGE (NEGATIVE); NITRITE, URINE AUTO NEGATIVE (NEGATIVE); PROTEIN, URINE AUTO 1+ mg/dL (NEGATIVE); RBC, URINE AUTO 0 /HPF (0-3); SPECIFIC GRAVITY URINE AUTO 1.031 (1.002-1.035); SQUAMOUS EPITHELIAL CELL UR AU 9 /HPF (0-6); UROBILINOGEN, URINE AUTO 4.0 mg/dL (0.0-2.0); WBC, URINE AUTO 104 /HPF (0-3)
== END ==
LOC: M SFHCRHEU 17:08
PROVIDERS: ATTEND Internal Medicine Rheumatology
DX: M34.9 Systemic sclerosis, unspecified (principal); R21 Rash and other nonspecific skin eruption; I73.00 Raynaud's syndrome without gangrene; Z79.60 Long term (current) use of unspecified immunomodulators and immunosuppressants; D64.9 Anemia, unspecified; R13.10 Dysphagia, unspecified; R76.0 Raised antibody titer; R53.1 Weakness; R20.0 Anesthesia of skin

== ENCOUNTER → 2025-09-14 | Outpatient (REF) | payer OTHER | LOC: M SFHCRHEU 10:47 | PROVIDERS: ATTEND Internal Medicine Rheumatology | DX: M34.9 Systemic sclerosis, unspecified (principal); Z53.9 Procedure and treatment not carried out, unspecified reason ==